=== PATIENT | male | born 1945 | race Caucasian/White ===

== ENCOUNTER 2018-01-15 23:51 | Emergency (ER) | payer MEDICARE, BC ==
--- NOTE | 2018-01-16 00:36 | ED ---
Abdominal Pain HPI - General Source: patient, RN notes reviewed Mode of arrival: ambulatory Limitations: no limitations <Kelsey Oneill - Last Filed: 01/16/18 02:59> <Reymundo Brown - Last Filed: 01/16/18 04:57> - General Chief Complaint: Abdominal Pain Stated Complaint: Back pain, consipation Time Seen by Provider: 01/16/18 00:22 - History of Present Illness Initial Comments: This is a 72-year-old male who presents to the emergency department with chief complaint of back pain and constipation. Patient states that 9 days ago he woke up with left-sided low back pain. Patient describes the pain as constant and sore. He states also since that time he has not had a bowel movement but he does continue to pass gas. He denies abdominal pain, nausea or vomiting. Denies fevers or chills. He denies any specific injury, trauma or recent falls. He denies dysuria, hematuria, increased urinary frequency or bloody stools. (Kelsey Oneill) - Related Data Previous Rx's Medication Instructions Recorded Polyethylene Glycol 3350 [Miralax] 17 gm PO DAILY #255 gm 01/16/18 Allergies Allergy/AdvReac Type Severity Reaction Status Date / Time No Known Allergies Allergy Verified 01/16/18 00:00 Review of Systems ROS Other: All systems not noted in ROS Statement are negative. <Kelsey Oneill - Last Filed: 01/16/18 02:59> ROS Other: All systems not noted in ROS Statement are negative. <Reymundo Brown - Last Filed: 01/16/18 04:57> ROS Statement: Those systems with pertinent positive or pertinent negative responses have been documented in the HPI. Past Medical History Past Medical History: Hypertension History of Any Multi-Drug Resistant Organisms: None Reported Past Surgical History: Pacemaker Additional Past Surgical History / Comment(s): valve replacement. Past Psychological History: No Psychological Hx Reported Smoking Status: Current every day smoker Past Alcohol Use History: None Reported Past Drug Use History: None Reported <Kelsey Oneill - Last Filed: 01/16/18 02:59> General Exam Limitations: no limitations Neck exam: Present: normal inspection, full ROM exam: Present: scrotal swelling (incarcerated left inguinal hernia) Back exam: Present: full ROM, paraspinal tenderness (left thoracic ), other ( thoracic kyphosis ). Absent: vertebral tenderness <Kelsey Oneill - Last Filed: 01/16/18 02:59> <Reymundo Brown - Last Filed: 01/16/18 04:57> - General Exam Comments Initial Comments: General: Awake and alert, well-developed; in no apparent distress. Patient appears chronically ill. Resting comfortably on ED stretcher. HEENT: Head atraumatic, normocephalic. Pupils are equal, round and reactive to light. Extraocular movements intact. Oropharynx moist without erythema or exudate. Neck: Supple. Normal ROM. Cardiovascular: Regular rate and rhythm. No murmurs, rubs or gallops. Chest symmetrical. Respiratory: Lungs clear to auscultation bilaterally. No wheezes, rales or rhonchi. Normal respiratory effort with no use of accessory muscles. Abdomen: Soft, non-tender, non-distended. No rigidity, rebound or guarding. Normal bowel sounds in all 4 quadrants. Musculoskeletal: Normal ROM, no tenderness bilateral upper and lower extremities. Skin: [place], warm and dry without rashes or lesions. Neurological: Alert and oriented x3. CN II-XII grossly intact. Speech is fluent and answers are appropriate. No focal neuro deficits. Psychiatric: Normal mood and affect. No overt signs of depression or anxiety noted. (Kelsey Oneill) Vital Signs 01/15/18 01/16/18 01/16/18 23:56 03:00 04:03 Temperature 97.4 F L 98.0 F Pulse Rate 71 70 83 Respiratory 24 18 16 Rate Blood Pressure 162/86 188/98 157/93 O2 Sat by Pulse 100 94 L 98 Oximetry Medical Decision Making - Lab Data Result diagrams: 01/16/18 00:58 01/16/18 00:58 - Radiology Data Radiology results: report reviewed, image reviewed <Kelsey Oneill - Last Filed: 01/16/18 02:59> - Lab Data Result diagrams: 01/16/18 00:58 01/16/18 00:58 <Reymundo Brown - Last Filed: 01/16/18 04:57> - Medical Decision Making This is a 72-year-old male who presents to the emergency department with chief complaint of back pain and constipation. Patient complains of left-sided back pain that began approximately 10 days ago. He denies any falls, injuries or trauma. He does describe the pain as sore and states that his has MS and helps move her periodically. On physical examination, there is left thoracic back tenderness on palpation. No vertebral bony point tenderness. CBC and CMP were unremarkable. X-ray KUB revealed a non-acute abdomen, however on review of the x-ray there is a large amount of stool within the colon. Patient given a milk and molasses enema. This case was discussed with attending physician, Dr. Brown who recommended computed tomography scan of the abdomen and pelvis. Computed tomography scan revealed evidence of an incarcerated left inguinal hernia, 5 cm abdominal aorta and constipation. These findings were discussed with attending physician, Dr. Bronw who then evaluated the patient. There does appear to be bowel within the scrotum. This is incarcerated and is unable to be reduced back into place. This is the likely reason for patient's constipation. Patient will be provided with follow-up to Dr. Barajas, surgery. Recommended admission to the hospital for surgical evaluation, however patient refuses. Return parameters were discussed with patient including decreased bowel movements, decreased flatulence or increase in pain. Patient was in agreement with these return parameters. He will be provided with prescription for MiraLAX to be taken daily. Patient will also be given contact information for vascular surgeon, Dr. Salazar, to address the abdominal aortic aneurysm. Patient is in agreement with this plan. Vital signs are stable and he is in no acute distress. He will be discharged home at this time. All questions were answered. (Kelsey Oneill) 72-year-old man with constipation and incarcerated left inguinal hernia. No signs of induration, normal lactic acid. Patient states he has had scrotal swelling and constipation for some time. CT does show a 5 cm abdominal aortic aneurysm with thrombus. No signs of lower extremity ischemia. Given the incarcerated hernia and aortic aneurysm, it is recommended that the patient stay in the hospital for evaluation both by general surgery and vascular surgery. He declines this. He states he would rather be discharged we will follow up as an outpatient. (Reymundo Brown) - Lab Data Lab Results 01/16/18 01/16/18 01/16/18 Range/Units 00:58 00:58 00:58 WBC 7.6 (3.8-10.6) k/uL RBC 4.50 (4.30-5.90) m/uL Hgb 14.7 (13.0-17.5) gm/dL Hct 43.6 (39.0-53.0) % MCV 97.0 (80.0-100.0) fL MCH 32.8 (25.0-35.0) pg MCHC 33.8 (31.0-37.0) g/dL RDW 14.0 (11.5-15.5) % Plt Count 157 (150-450) k/uL Neutrophils % 70 % Lymphocytes % 21 % Monocytes % 6 % Eosinophils % 2 % Basophils % 0 % Neutrophils # 5.3 (1.3-7.7) k/uL Lymphocytes # 1.6 (1.0-4.8) k/uL Monocytes # 0.4 (0-1.0) k/uL Eosinophils # 0.2 (0-0.7) k/uL Basophils # 0.0 (0-0.2) k/uL Sodium 137 (137-145) mmol/L Potassium 4.5 (3.5-5.1) mmol/L Chloride 101 (98-107) mmol/L Carbon Dioxide 27 (22-30) mmol/L Anion Gap 9 mmol/L BUN 16 (9-20) mg/dL Creatinine 0.90 (0.66-1.25) mg/dL Est GFR (CKD-EPI)AfAm >90 (>60 ml/min/1.73 sqM) Est GFR (CKD-EPI)NonAf 84 (>60 ml/min/1.73 sqM) Glucose 99 (74-99) mg/dL Plasma Lactic Acid Kavon 1.2 (0.7-2.0) mmol/L Calcium 8.8 (8.4-10.2) mg/dL Total Bilirubin 0.9 (0.2-1.3) mg/dL AST 18 (17-59) U/L ALT 28 (21-72) U/L Alkaline Phosphatase 76 (38-126) U/L Total Protein 6.3 (6.3-8.2) g/dL Albumin 3.5 (3.5-5.0) g/dL Amylase 104 (30-110) U/L Lipase 239 (23-300) U/L - Radiology Data X-ray KUB findings: The bowel gas pattern is normal. There is no sign of intestinal obstruction or pneumoperitoneum. Fecal pattern is normal. There are fibrotic changes in the lower lobes with interstitial reticular infiltrates. There is a large hiatal hernia. There are no pathologic calcifications over the kidneys. Impression: Nonacute abdomen. CT abdomen and pelvis with contrast impression: 5 cm aneurysm of the abdominal aorta. No evidence of leakage. Large hiatal hernia. Pulmonary interstitial fibrosis. Constipation. Atherosclerotic vascular disease. Enlarged prostate. Incarcerated left inguinal hernia probably containing small bowel. I do not see evidence for a bowel obstruction however. (Kelsey Oneill) Disposition Is patient prescribed a controlled substance at d/c from ED?: No Time of Disposition: 03:41 <Kelsey Oneill - Last Filed: 01/16/18 02:59> <Reymundo Brown - Last Filed: 01/16/18 04:57> Clinical Impression: Abdominal aortic aneurysm, Constipation, Incarcerated inguinal hernia Disposition: HOME SELF-CARE Condition: Good Instructions: Constipation (ED), Abdominal Aortic Aneurysm (DC), Inguinal Hernia (ED) Additional Instructions: Please follow-up with Dr. Barajas, general surgeon, within 1-2 days to address the incarcerated inguinal hernia. Please follow-up with Dr. Salazar, vascular surgeon, within 1-2 days to address abdominal aortic aneurysm. Please take medications as prescribed. Please follow up with primary care provider within 1- 2 days. Return to emergency department if symptoms should worsen or any concerns arise. Please return to the emergency department if you have decreased bowel movements, decreased passing of gas or increase in abdominal or scrotal pain. Prescriptions: Polyethylene Glycol 3350 [Miralax] 17 gm PO DAILY #255 gm Referrals: Tito Almeida DO [Primary Care Provider] - 1-2 days Marcos Barajas MD [Medical Doctor] - 1-2 days aRnjit Salazar MD [STAFF PHYSICIAN] - 1-2 days
[2018-01-16] MEDS ORDERED: ACETAMINOPHEN TAB 325 MG TAB PO STA (00:45)
[2018-01-16 01:13] LABS: Basophils % (A) 0 %; Eosinophils # (A) 0.2 k/uL (0-0.7); Eosinophils % (A) 2 %; HCT 43.6 % (39.0-53.0); HGB 14.7 gm/dL (13.0-17.5); Lymphocytes # (A) 1.6 k/uL (1.0-4.8); Lymphocytes % (A) 21 %; MCH 32.8 pg (25.0-35.0); MCHC 33.8 g/dL (31.0-37.0); Mean Platelet Volume 7.7; Monocytes # (A) 0.4 k/uL (0-1.0); Monocytes % (A) 6 %; Neutrophils # (A) 5.3 k/uL (1.3-7.7); Neutrophils % (A) 70 %; Platelet Count 157 k/uL (150-450); WBC 7.6 k/uL (3.8-10.6)
[2018-01-16 01:19] LABS: ALT 28 U/L (21-72); AST 18 U/L (17-59); Albumin 3.5 g/dL (3.5-5.0); Alkaline Phosphatase 76 U/L (38-126); Amylase 104 U/L (30-110); Anion Gap 9 mmol/L; Blood Urea Nitrogen 16 mg/dL (9-20); Calcium 8.8 mg/dL (8.4-10.2); Carbon Dioxide 27 mmol/L (22-30); Chloride 101 mmol/L (98-107); Glucose 99 mg/dL (74-99); Lipase 239 U/L (23-300); Potassium 4.5 mmol/L (3.5-5.1); Sodium 137 mmol/L (137-145); Total Bilirubin 0.9 mg/dL (0.2-1.3); Total Protein 6.3 g/dL (6.3-8.2)
--- NOTE | 2018-01-16 01:31 | XR ---
EXAMINATION TYPE: XR KUB DATE OF EXAM: 01/16/2018 COMPARISON: NONE HISTORY: Left flank pain TECHNIQUE: 2 views upright FINDINGS: The bowel gas pattern is normal. There is no sign of intestinal obstruction or pneumoperito neum. Fecal pattern is normal. There are fibrotic changes in the lower lobes with interstitial reticu lar infiltrates. There is large hiatal hernia. There are no pathologic calcifications over the kidney s. IMPRESSION: Nonacute abdomen.
[2018-01-16] MEDS ORDERED: RX INFO: IV CONTRAST WAS GIVEN 1 EACH MISC MISCELLANE PRN (02:01)
--- NOTE | 2018-01-16 02:53 | CT ---
EXAMINATION TYPE: CT abdomen pelvis w con DATE OF EXAM: 01/16/2018 COMPARISON: NONE HISTORY: ABDOMINAL PAIN. LEFT FLANK CT DLP: 408.3 mGycm Automated exposure control for dose reduction was used. TECHNIQUE: Helical acquisition of images was performed from the lung bases through the pelvis. CONTRAST: Performed without Oral Contrast and with IV Contrast, patient injected with 100 mL of Isovue 300. FINDINGS: There is subpleural interstitial density at the lung bases consistent with pulmonary fibrosis. There is a large hiatal hernia. There is no pericardial effusion. Liver shows no focal defect. Spleen and pancreas appear normal. Gallbladder appears normal. Bile duct s are not dilated. There is no adrenal mass. Kidneys show satisfactory contrast opacification. There is no hydronephrosi s. There is 5.3 cm aneurysm of the lower abdominal aorta with thrombus. Thrombus measures up to 1.5 c m. There is patency of the iliac arteries. There is retained fecal material in the right colon. There prostate is enlarged and measures 5 cm. Bladder distends otherwise smoothly. I see no sign of a maryjo l obstruction. There is no retroperitoneal adenopathy. There is no ascites. There is mild compression deformity of L3 and L4 vertebral bodies. There is incarcerated left inguinal hernia that appears to contain only small bowel. I do not see dil ated small bowel. Appendix appears normal. IMPRESSION: 5 CM ANEURYSM OF THE ABDOMINAL AORTA. NO EVIDENCE OF LEAKAGE. LARGE HIATAL HERNIA. PULMONARY INTERSTI TIAL FIBROSIS. CONSTIPATION. ATHEROSCLEROTIC VASCULAR DISEASE. ENLARGED PROSTATE. INCARCERATED LEFT INGUINAL HERNIA PROBABLY CONTAINING SMALL BOWEL. I DO NOT SEE EVIDENCE FOR A BOWEL OBSTRUCTION HOWEVER.
[2018-01-16 04:10] VITALS: BP 157/93; PULSE 83; RESP 16; TEMP 98
== END 2018-01-16 04:11 | disposition home or self-care (01) ==
LOC: EC 23:51
DX: I71.4 Abdominal aortic aneurysm, without rupture (principal); K40.30 Unilateral inguinal hernia, with obstruction, without gangrene, not specified as recurrent; K59.00 Constipation, unspecified; F17.200 Nicotine dependence, unspecified, uncomplicated; Z53.29 Procedure and treatment not carried out because of patient's decision for other reasons; Z95.0 Presence of cardiac pacemaker; Z95.2 Presence of prosthetic heart valve
CPT/HCPCS: 36415; 80053; 82150; 83605; 83690; 85025; 74018; 74177; 99284; Q9967

== ENCOUNTER 2018-02-09 10:57 | Observation (INO) | payer MEDICARE, BC ==
[2018-02-03 17:16] VITALS: BMI 22.1
[~2018-02-09 10:57] MED LIST: DEXAMETHASONE SOD PHOSPHATE 10 MG/ML 1 ML VIAL IV ONE; HEPARIN SODIUM,PORCINE 5,000 UNIT/ML 1 ML VIAL SQ ONE; LIDOCAINE 1% 20 ML VIAL (10MG/ML) FOR IV START INTRADERMA PRN; MORPHINE SULFATE 2 MG/ML SYRINGE IV PRN; ONDANSETRON 4 MG/2 ML VIAL IVP ONE; SCOPOLAMINE 1.5MG/72HR PATCH TRANSDERM ONE; ceFAZolin IN SWFI 2 GM/20 ML SYRINGE IVP ONE
[2018-02-09 12:35] LABS: Glucose,Whole Blood 92 mg/dL (75-99)
[2018-02-09] MEDS: LACTATED RINGERS 1,000 ML IV SCH (12:45)
--- NOTE | 2018-02-09 14:07 | P.GSHP ---
History of Present Illness H&P Date: 02/09/18 Chief Complaint: Left inguinal hernia This a 72-year-old male referred from Dr. Tito Almeida. Patient rents today for laparoscopic robotic-assisted repair of left inguinal hernia. Past Medical History Past Medical History: GERD/Reflux, Hearing Disorder / Deafness, Hypertension, Musculoskeletal Disorder, Skin Disorder Additional Past Medical History / Comment(s): AORTIC VALVE REPLACED, PACEMAKER. NO LONGER ON HTN RX SINCE 2016. PSORIASIS. C/O BACK PAIN X2 WEEKS; HAD CORTISONE INJ. History of Any Multi-Drug Resistant Organisms: None Reported Past Surgical History: Cardiac Valve Replacement, Pacemaker Additional Past Surgical History / Comment(s): AORTIC Valve Replacement. Past Anesthesia/Blood Transfusion Reactions: No Reported Reaction Type of Cardiac Device: Permanent Pacemaker Device Placement Date:: 2008 Smoking Status: Current every day smoker - Past Family History Mother Family Medical History: No Reported History Medications and Allergies Home Medications Medication Instructions Recorded Confirmed Type Ibuprofen [Advil] 200 mg PO Q6HR PRN 02/03/18 02/09/18 History Rivaroxaban [Xarelto] 20 mg PO PC-SUPPER 02/03/18 02/09/18 History Allergies Allergy/AdvReac Type Severity Reaction Status Date / Time No Known Allergies Allergy Verified 02/03/18 16:47 Surgical - Exam Vital Signs Temp Pulse Resp BP Pulse Ox 97.2 F L 70 16 132/85 99 02/09/18 12:08 02/09/18 12:08 02/09/18 12:08 02/09/18 12:08 02/09/18 12:08 - General well developed, no distress - Eyes PERRL - ENT normal pinna - Neck no masses - Respiratory normal expansion - Cardiovascular Rhythm: regular - Abdomen Abdomen: soft, non tender Hernia: inguinal (Left inguinal hernia) Assessment and Plan Assessment: Left inguinal hernia. We'll perform laparoscopic robotic system repair.
[2018-02-09] MEDS ORDERED: NEOSTIGMINE 1 MG/ML 10 ML VIAL ONE (14:35)
[2018-02-09] MEDS ORDERED: MIDAZOLAM 2 MG/2 ML VIAL ONE (14:35)
[2018-02-09] MEDS ORDERED: GLYCOPYRROLATE 0.2 MG/ML 2 ML VIAL ONE (14:35)
[2018-02-09] MEDS ORDERED: ROCURONIUM BROMIDE 10 MG/ML 10 ML VIAL IV ONE (14:35)
[2018-02-09] MEDS ORDERED: LIDOCAINE 1% INJ 10MG/ML (20 ML MDV) ONE (14:35)
[2018-02-09] MEDS ORDERED: KETOROLAC 30 MG/ML 1 ML VIAL ONE (14:35)
[2018-02-09] MEDS ORDERED: PHENYLEPHRINE-0.9% NACL SYG 1 MG/10 ML SYRINGE ONE (14:35)
[2018-02-09] MEDS ORDERED: PROPOFOL 10 MG/ML 20 ML VIAL IV ONE (14:35)
[2018-02-09] MEDS ORDERED: SUCCINYLCHOLINE CHLORIDE 100 MG/5 ML SYR IV ONE (14:35)
[2018-02-09] MEDS ORDERED: fentaNYL (PF) 50 MCG/ML 2 ML AMP ONE (14:35)
[2018-02-09] MEDS ORDERED: BUPIVACAINE (PF) 0.5% 30 ML VIAL SQ ONE (14:40)
--- NOTE | 2018-02-09 15:42 | P.OP ---
Date of Procedure: 02/09/18 Preoperative Diagnosis: Left inguinal hernia Postoperative Diagnosis: Left inguinal hernia Procedure(s) Performed: Laparoscopic robotic repair of left inguinal hernia Excision of left cord lipoma Anesthesia: WAQAR Surgeon: Zac Aquino Estimated Blood Loss (ml): 5 Pathology: other (Cord lipoma) Condition: stable Disposition: PACU Description of Procedure: The patient's placed on the operating table in the supine position. The patient received general anesthesia. The patient's abdomen was prepped and draped in usual sterile fashion. The skin was anesthetized 1% local Xylocaine at the incision sites. Using an 11 blade a skin incision was made at the umbilicus. The fascia was grasped with a Trudy and then the peritoneal cavity was entered with the Veress needle. Position of the Veress needle was confirmed with a positive drop test. After adequate insufflation a 5 mm trocar was placed into the peritoneal cavity. The Laparoscope was placed the peritoneal cavity. And a robotic 8 mm trocar was placed in the right lateral position and then another 8 mm robotic trochars placed in the left lateral position. The original 5 mm trocar was exchanged for a 12 mm trocar. The patient was placed in reverse Trendelenburg and then the patient was docked to the robot. Next the peritoneum over top of the hernia was incised and then using blunt and sharp dissection and electrocautery the hernia sac was dissected free from the floor of the inguinal canal. The hernia sac was completely reduced into the peritoneal cavity. The cord lipoma was dissected free from the cord. And then using the Pro welfare specialist mesh the hernia was repaired. The peritoneum was then sutured with 20V lock suture. The patient was then undocked the robot. The needle was withdrawn from the peritoneal cavity. The cord lipoma was achieved. The umbilical trocar site was closed with 0 Ethibond suture. The skin was closed interrupted 3-0 Monocryl suture. Dermabond dressing was applied. Patient was sent to recovery in stable condition.
[2018-02-09] MEDS ORDERED: LACTATED RINGERS 1,000 ML IV ONE (20:00)
[2018-02-09] MEDS ORDERED: HYDROcodone/APAP 7.5-325MG 1 EACH TAB PO PRN (21:09)
[2018-02-09] MEDS ORDERED: LACTATED RINGERS 1,000 ML IV SCH (21:15)
[2018-02-09] MEDS: DOCUSATE 100 MG CAP PO SCH (23:01)
[2018-02-10 07:56] VITALS: RESP 16
[2018-02-10] MEDS: DOCUSATE 100 MG CAP PO SCH (09:12)
--- NOTE | 2018-02-10 11:42 | P.DS ---
Providers Date of admission: 02/09/18 21:13 Expected date of discharge: 02/10/18 Attending physician: Zac Ott Primary care physician: Tito [facility] Course: 72-year-old presented to undergo an elective robotic laparoscopic assisted repair of left inguinal hernia. Patient underwent the procedure on February 09. No postop events. Patient was up ambulatory on the unit pain medication effective for pain control surgical dressing site dry urinating after Ruggiero was removed without difficulty patient was anxious to be discharged Impression discharge diagnosis robotic-assisted laparoscopic repair of inguinal hernia done on February 09 Hypertension essential History of valvular heart disease valvular replacement Current every day smoker History of Pacemaker Present on admission left inguinal hernia The above impression and plan of care have been discussed and directed by signing physician. Keyona Shoemaker nurse practitioner acting as scribe for signing physician. Plan - Discharge Summary New Discharge Prescriptions: New Docusate [Colace] 100 mg PO BID #20 capsule HYDROcodone/APAP 7.5-325MG [Hana 7.5-325] 1 tab PO Q4H PRN 3 Days #18 tab PRN Reason: Pain No Action Ibuprofen [Advil] 200 mg PO Q6HR PRN PRN Reason: Pain Rivaroxaban [Xarelto] 20 mg PO PC-SUPPER Discharge Medication List Ibuprofen [Advil] 200 mg PO Q6HR PRN 02/03/18 [History] Rivaroxaban [Xarelto] 20 mg PO PC-SUPPER 02/03/18 [History] Docusate [Colace] 100 mg PO BID #20 capsule 02/09/18 [Rx] HYDROcodone/APAP 7.5-325MG [Hana 7.5-325] 1 tab PO Q4H PRN 3 Days #18 tab 02/09 [Rx] Follow up Appointment(s)/Referral(s): Zac Ott MD [STAFF PHYSICIAN] - 02/17/18 3:00 pm Patient Instructions/Handouts: *Surgery [facility] - (Anesthesia) Discharge Instructions Outpatient Surgery, Laparoscopic Herniorrhaphy (DC), Inguinal Hernia Repair (DC) Activity/Diet/Wound Care/Special Instructions: No tub bath for six weeks. Shower daily. No lifting over 10 pounds for the next 6 weeks. Do not remove surgical dressing until seen in the follow-up visit with dr ott May use ice packs to surgical site. No driving while taking narcotic for pain. Discharge Disposition: HOME SELF-CARE
[2018-02-10 12:13] VITALS: BP 147/93; PULSE 83; TEMP 98.1
[2018-02-10] MEDS ORDERED: RIVAROXABAN 20 MG TAB PO SCH (18:30)
== END 2018-02-10 13:25 | disposition home or self-care (01) ==
LOC: OR 10:57 → 3OBS 16:08 → OR 21:33
PROVIDERS: ADMIT Surgery; ATTEND Surgery
DX: K40.90 Unilateral inguinal hernia, without obstruction or gangrene, not specified as recurrent (principal); D17.6 Benign lipomatous neoplasm of spermatic cord; I10 Essential (primary) hypertension; K21.9 Gastro-esophageal reflux disease without esophagitis; H91.90 Unspecified hearing loss, unspecified ear; L40.9 Psoriasis, unspecified; F17.200 Nicotine dependence, unspecified, uncomplicated; Z79.01 Long term (current) use of anticoagulants; Z95.2 Presence of prosthetic heart valve; Z95.0 Presence of cardiac pacemaker
CPT/HCPCS: 49650; S2900; 88304

== ENCOUNTER → 2018-05-31 | Outpatient (CLI) | payer MEDICARE, BC ==
--- NOTE | 2018-05-31 15:28 | XR ---
EXAMINATION TYPE: XR chest 2V DATE OF EXAM: 05/31/2018 COMPARISON: Prior chest x-ray 06/01/[address] 01/16/2018 HISTORY: Unexplained weight loss, nicotine dependence TECHNIQUE: Frontal and lateral views of the chest are obtained. FINDINGS: Patient is rotated. Hyperinflation is again noted. Retrocardiac density with central lucen cy again noted compatible with hiatal hernia. Interstitium is increased. Pacemaker is stable with yariel ds in the right atrium and ventricle. Heart is small. Aorta is dense. There is increased AP diameter chest. Increased retrosternal airspace noted. Patient shows cardiac valve replacement. IMPRESSION: No acute cardiopulmonary process. Emphysema.
--- NOTE | 2018-05-31 17:51 | NM ---
EXAMINATION TYPE: NM bone scan whole body DATE OF EXAM: 05/31/2018 COMPARISON: Chest x-ray same date HISTORY: Myalgia, osteoarthritis Delayed whole-body scanning was performed following the injection of 26.2 mCi Tc 99m MDP. Images acq uired 3 hours post injection. FINDINGS: There is a bandlike focus of increased radio from a suitable uptake present at the approximate T10 ve rtebral body compatible with osteoporotic compression fracture. Soft tissue uptake is normal. Some up take present along the tibia on the right greater than left possibly due to periostitis. There is a s trish curvature. IMPRESSION: Probable osteoporotic compression fracture T10. Suspect periosteal reaction along the tibias right greater than left, suggest plain film correlation.
== END | disposition home or self-care (01) ==
LOC: RADNMMAIN 10:11
PROVIDERS: ATTEND Family Medicine
DX: J43.9 Emphysema, unspecified (principal); F17.210 Nicotine dependence, cigarettes, uncomplicated; M19.90 Unspecified osteoarthritis, unspecified site; M79.1 Myalgia
CPT/HCPCS: 71046; 78306; A9503

== ENCOUNTER → 2018-12-06 | Outpatient (CLI) | payer MEDICARE, BC ==
[2018-12-06 15:09] LABS: Blood Urea Nitrogen 14 mg/dL (9-20)
--- NOTE | 2018-12-07 04:05 | CT ---
EXAMINATION TYPE: CT angio abdomen DATE OF EXAM: 12/06/2018 COMPARISON: 01/16/2018 HISTORY: 73-year-old male Abdominal aortic aneurysm, without rupture. CT DLP: 194.9 mGycm, Automated Exposure Control for Dose Reduction was Utilized. Technique: CT scan of the abdomen is performed with IV Contrast, patient injected with 100ml mL of Is ovue 370. Coronal sagittal MIP reconstructions performed. 3-D reconstructions generated on a [employer] independent workstation. FINDINGS: Increased AP chest dimension of the thorax compatible with underlying emphysema. Median sternotomy wi res are present. Heart normal size without pericardial effusion. Large hiatal hernia is redemonstrate d. One of the pacer leads loops down low into the hepatic IVC, unchanged. Arterial phase imaging of the liver shows peripheral vascular blush segment 3 left liver lobe probabl y some vascular shunting. Layering sludge or gravel within the nondistended gallbladder. Adrenal glands are not well seen. Kidneys, spleen, and pancreas show no gross abnormality. No dilated small bowel, free fluid, or free air. Moderate stool burden without pericolonic inflammatory change. Extensive clustering of bowel loops li mits detailed evaluation. No definite mesenteric or retroperitoneal lymphadenopathy. Redemonstrated fusiform infrarenal abdominal aortic aneurysm extending 9.4 cm down to the bifurcation . Moderate atherosclerotic calcifications within the common iliac arteries. The patient's abdominal aortic aneurysm continues to show circumferential mural-based plaque/thrombus measuring 5.9 x 5.4 cm previously, this measured 5.5 x 4.9 cm. No surrounding hematoma or abnormal d raping along the spine. No intramural extension of contrast is identified. Bones: Superior endplate deformities of L3 and L4 were present previously. IMPRESSION: 1. 9.4 cm long infrarenal AAA extending to the aortic bifurcation. The aneurysm has enlarged from 01/04 now measuring 5.9 x 5.4 cm (versus 5.5 x 4.9 cm, previously). Recommend vascular surgery refer ral. 2. COPD and large hiatal hernia. 3. Incidentally, one of the pacer leads loops low into the hepatic IVC, similar to prior. Questionabl e clinical significance. 4. Layering sludge or gravel within the gallbladder.
== END | disposition home or self-care (01) ==
LOC: RADCTMAIN 14:31
PROVIDERS: ATTEND Nurse Practitioner Adult Health
DX: I71.4 Abdominal aortic aneurysm, without rupture (principal)
CPT/HCPCS: 82565; 84520; 74175; 36415; Q9967

== ENCOUNTER 2018-12-28 09:56 | Inpatient (IN) | payer MEDICARE, BC ==
[2018-12-26 08:50] VITALS: BMI 20.7
[~2018-12-28 09:56] MED LIST changes: +ALPRAZolam 0.25 MG TAB PO PRN; -DEXAMETHASONE SOD PHOSPHATE 10 MG/ML 1 ML VIAL IV ONE; -HEPARIN SODIUM,PORCINE 5,000 UNIT/ML 1 ML VIAL SQ ONE; +HYDROmorphone 0.5 MG/0.5 ML SYRINGE IVP PRN; -MORPHINE SULFATE 2 MG/ML SYRINGE IV PRN; -SCOPOLAMINE 1.5MG/72HR PATCH TRANSDERM ONE; +SODIUM CHLORIDE 0.9% 1,000 ML in EMPTY BAG 1 BAG IV ONE; -ceFAZolin IN SWFI 2 GM/20 ML SYRINGE IVP ONE
[2018-12-28] MEDS ORDERED: MIDAZOLAM 2 MG/2 ML VIAL IV ONE (10:45)
[2018-12-28] MEDS ORDERED: HEPARIN SODIUM,PORCINE 10,000 UNIT/ML 1 ML VIAL ONE (11:03)
[2018-12-28] MEDS ORDERED: LIDOCAINE 1% INJ 10MG/ML (20 ML MDV) ONE (11:03)
[2018-12-28] MEDS ORDERED: NEOSTIGMINE 1 MG/ML 10 ML VIAL ONE (11:03)
[2018-12-28] MEDS ORDERED: PHENYLEPHRINE-0.9% NACL SYG 1 MG/10 ML SYRINGE ONE (11:03)
[2018-12-28] MEDS ORDERED: MIDAZOLAM 2 MG/2 ML VIAL ONE (11:03)
[2018-12-28] MEDS ORDERED: GLYCOPYRROLATE 0.2 MG/ML 2 ML VIAL ONE (11:03)
[2018-12-28] MEDS ORDERED: fentaNYL (PF) 50 MCG/ML 2 ML AMP ONE (11:03)
[2018-12-28] MEDS ORDERED: ceFAZolin 1,000 MG VIAL ONE (11:03)
[2018-12-28] MEDS ORDERED: PROTAMINE SULFATE 10 MG/ML 5 ML VIAL IV ONE (11:03)
[2018-12-28] MEDS ORDERED: ROCURONIUM BROMIDE 10 MG/ML 10 ML VIAL IV ONE (11:03)
[2018-12-28] MEDS ORDERED: PROPOFOL 10 MG/ML 20 ML VIAL IV ONE (11:03)
[2018-12-28] MEDS ORDERED: LACTATED RINGERS 1,000 ML IV ONE ×3 (11:07→13:59)
[2018-12-28 11:19] LABS: Anion Gap 6 mmol/L; Blood Urea Nitrogen 15 mg/dL (9-20); Calcium 8.8 mg/dL (8.4-10.2); Carbon Dioxide 25 mmol/L (22-30); Chloride 104 mmol/L (98-107); Glucose 81 mg/dL (74-99); Potassium 4.4 mmol/L (3.5-5.1); Sodium 135 mmol/L (137-145)
[2018-12-28 11:22] LABS: Basophils # (A) 0.1 k/uL (0-0.2); Basophils % (A) 1 %; Eosinophils # (A) 0.2 k/uL (0-0.7); Eosinophils % (A) 3 %; HCT 43.6 % (39.0-53.0); HGB 14.5 gm/dL (13.0-17.5); Lymphocytes # (A) 1.4 k/uL (1.0-4.8); Lymphocytes % (A) 22 %; MCH 33.4 pg (25.0-35.0); MCHC 33.2 g/dL (31.0-37.0); MCV 100.7 fL (80.0-100.0); Macrocytosis Slight; Mean Platelet Volume 7.1; Monocytes # (A) 0.2 k/uL (0-1.0); Monocytes % (A) 4 %; Neutrophils # (A) 4.3 k/uL (1.3-7.7); Neutrophils % (A) 69 %; Platelet Count 169 k/uL (150-450); RBC 4.33 m/uL (4.30-5.90); RDW 14.1 % (11.5-15.5); WBC 6.2 k/uL (3.8-10.6)
[2018-12-28] MEDS ORDERED: IOPAMIDOL-250 100ML BTL INTRAARTER ONE ×2 (13:07→13:08)
[2018-12-28] MEDS ORDERED: IOPAMIDOL-250 50ML BTL INTRAARTER ONE (13:08)
[2018-12-28] MEDS ORDERED: SODIUM CHLORIDE 0.9% 1,000 ML IV SCH (13:30)
[2018-12-28] MEDS: LACTATED RINGERS 1,000 ML IV SCH ×2 (13:58→14:44)
[2018-12-28 14:02] LABS: Anion Gap 5 mmol/L; Blood Urea Nitrogen 13 mg/dL (9-20); Calcium 7.9 mg/dL (8.4-10.2); Carbon Dioxide 20 mmol/L (22-30); Chloride 109 mmol/L (98-107); Glucose 95 mg/dL (74-99); Potassium 4.3 mmol/L (3.5-5.1); Sodium 134 mmol/L (137-145)
[2018-12-28 14:03] LABS: Basophils % (A) 0 %; Eosinophils # (A) 0.2 k/uL (0-0.7); Eosinophils % (A) 2 %; HCT 34.4 % (39.0-53.0); Lymphocytes # (A) 1.4 k/uL (1.0-4.8); Lymphocytes % (A) 15 %; MCH 33.3 pg (25.0-35.0); MCHC 33.4 g/dL (31.0-37.0); MCV 99.7 fL (80.0-100.0); Macrocytosis Slight; Mean Platelet Volume 7.7; Monocytes # (A) 0.2 k/uL (0-1.0); Monocytes % (A) 2 %; Neutrophils % (A) 79 %; Platelet Count 135 k/uL (150-450); RBC 3.45 m/uL (4.30-5.90); RDW 14.8 % (11.5-15.5); WBC 8.9 k/uL (3.8-10.6)
[2018-12-28 14:04] LABS: HGB 11.5 gm/dL (13.0-17.5)
[2018-12-28 14:58] LABS: Glucose,Whole Blood 90 mg/dL (75-99)
[2018-12-28] MEDS: hydrALAZINE HCL 20 MG/ML 1 ML VIAL IVP PRN ×2 (15:40→21:35)
[2018-12-28] MEDS ORDERED: HYDROmorphone 0.5 MG/0.5 ML SYRINGE IVP PRN ×2 (16:45→18:51)
[2018-12-28] MEDS ORDERED: HYDROmorphone 1 MG/ML 1 ML SYRINGE IVP PRN (16:45)
--- NOTE | 2018-12-28 17:50 | AN ---
ANGIOGRAPHY REPORT DATE OF SERVICE: December 28, 2018 PERFORMING PHYSICIAN: 1. Huey Anaya M.D. 2. Donn Gutiérrez D.O. PROCEDURE PERFORMED: Successful endovascular repair of infrarenal abdominal aortic aneurysm using the 20 mm ovation IX device. COMPLICATION: None. LEVEL OF SEDATION: The procedure was performed under general anesthesia with FINE HAIRER in the room. INDICATIONS FOR PROCEDURE: Infrarenal abdominal aortic aneurysm. PROCEDURE DESCRIPTION: After obtaining an informed consent, the patient was brought to the cardiac tutorial laboratory supervisor. The patient was placed under general anesthesia. Both groins were prepped and draped in the usual sterile fashion. Subsequently, we accessed both femoral arteries using an 18-gauge Cook needle under ultrasound guidance. Subsequently, we placed two 6-Portuguese sheaths in both femoral arteries over a 035 Glidewire. Then we placed 2 Perclose on each side at 10 and 2 o'clock over the 0.035 wire. We did that as a pre close. After that I did, which shows to go on the left side as the ipsilateral side and the right side as the contralateral side. Subsequently we did angiogram using 6-Portuguese pigtail catheter to measure the vessel length and characterize the anatomy. That was performed using a pigtail catheter. Subsequently, we did load 20 mm ovation IX aortic candelaria delivery system over a stiff 035 Amplatz wire which was inserted on the left side and the aortic candelaria was advanced until the implant radiopaque marker was about 1 cm proximal to the intended landing site. The aortic candelaria was oriented to the desired position for appropriate access to the contralateral aortic candelaria limb. After that, we retracted the delivery system outer sheath. Subsequently we verified the aortic candelaria radial back marker and long delivery system radial back marker to be in the correct position. Then we deployed the 1st segment of the proximal stent by turning the first stent release knob, quarter turn counter-clockwise and it was steadily pulled the knob out. After that, we precisely repositioned the implant radiopaque marker at final proximal landing site. We used contrast injection to confirm the implant position relative to the renal arteries. Subsequently, we retracted the angiographic catheter away from the proximal stent. Then, we deployed the remainder of the proximal stent by turning the second stent release knob half turn counter-clockwise and then we steadily pulled the knob out. After that, we did inject the and we did wait for 14 minutes. We did intermittent fluoroscopy to observe the filling of the graft with the radial back filling with the radial back polymer. Subsequently we obtained contralateral limb access lumen with guidewire which was an 0.035 Glidewire via contralateral cannulation. Subsequently, we inserted the mocked pigtail catheter over the Glidewire on the contralateral limb to assess the length of the contralateral limb. We placed on the contralateral limb 14 x 140 iliac limb delivery system. Then the limb was deployed under fluoroscopy guidance. The proximal iliac limb radiopaque marker was aligned with the most proximal half ring of the aortic candelaria. We assured that before we deployed the contralateral limb. Subsequently for the ipsilateral limb, we placed a 16 x 100. That was placed over 035 stiff Amplatz wire. We did the same assurance that the proximal ipsilateral limb marker was aligned with the most proximal half ring of the aortic candelaria. The ipsilateral limb was deployed under fluoroscopy guidance. We had to have an extension which was full. We did extend the ipsilateral limb using additional 16 x 120. That was performed under fluoroscopy guidance as well. Finally, we inserted a pigtail catheter for final angiogram which revealed possible type 1 endoleak. We did close both groins using the 2 Perclose, which we placed at the beginning of the procedure. The procedure was completed without any complication. POSTPROCEDURE MANAGEMENT: 1. CTA in about 4 weeks from now. 2. Continuous ultrasound surveillance. 3. Follow up with the patient. MORGAN / NYA: [id number] /
[2018-12-29 04:44] LABS: Anion Gap 6 mmol/L; Blood Urea Nitrogen 13 mg/dL (9-20); Calcium 7.9 mg/dL (8.4-10.2); Carbon Dioxide 21 mmol/L (22-30); Chloride 106 mmol/L (98-107); Glucose 97 mg/dL (74-99); Potassium 4.1 mmol/L (3.5-5.1); Sodium 133 mmol/L (137-145)
[2018-12-29 06:16] LABS: Basophils % (A) 0 %; Eosinophils % (A) 0 %; HCT 33.4 % (39.0-53.0); HGB 11.1 gm/dL (13.0-17.5); Lymphocytes % (A) 10 %; MCH 33.3 pg (25.0-35.0); MCHC 33.2 g/dL (31.0-37.0); MCV 100.1 fL (80.0-100.0); Macrocytosis Slight; Mean Platelet Volume 8.4; Monocytes # (A) 0.5 k/uL (0-1.0); Monocytes % (A) 5 %; Neutrophils # (A) 8.4 k/uL (1.3-7.7); Neutrophils % (A) 84 %; Platelet Count 122 k/uL (150-450); RBC 3.33 m/uL (4.30-5.90); RDW 14.6 % (11.5-15.5)
--- NOTE | 2018-12-29 07:47 | DS ---
DISCHARGE SUMMARY ADMISSION DATE: December 28, 2018 DISCHARGE DATE: December 29, 2018 BRIEF HISTORY: This is a pleasant 73-year-old gentleman who sees Dr. Lor Guzmán as an outpatient who was diagnosed recently with enlarging abdominal aortic aneurysm. He underwent yesterday successful percutaneous repair of abdominal aortic aneurysm using the Ovation iX device with evidence of possible type 1 endoleak by the end of the procedure. The procedure was performed under general anesthesia. On follow up with him today, he is doing good and he is asymptomatic from a cardiovascular standpoint of view. He has both groins are soft and nontender and without any bruises. The patient is going to be discharged home and I will follow up with him next week in the office. MMODL / IJN: [id number] /
--- NOTE | 2018-12-29 10:19 | IR ---
Fluoroscopy HISTORY: Aortic aneurysm 24.1 minutes fluoroscopy time supplied to the referring clinician. 629 intraoperative C-arm images d ocument the procedure. See dictated report from cardiology.
[2018-12-29 13:24] VITALS: BP 125/69; PULSE 69; RESP 13; TEMP 98.3
== END 2018-12-29 13:38 | disposition home or self-care (01) | DRG 269 ==
LOC: 2ORMAIN 09:56 → 2SICU 13:17
PROVIDERS: ADMIT Internal Medicine Interventional Cardiology; ATTEND Internal Medicine Interventional Cardiology
PROC: 04V03DZ Restriction of Abdominal Aorta with Intraluminal Device, Percutaneous Approach (ICD-10-PCS; principal; 2018-12-28 11:07)
DX: I71.4 Abdominal aortic aneurysm, without rupture (principal); I48.0 Paroxysmal atrial fibrillation; J44.9 Chronic obstructive pulmonary disease, unspecified; I10 Essential (primary) hypertension; F17.210 Nicotine dependence, cigarettes, uncomplicated; H91.90 Unspecified hearing loss, unspecified ear; K21.9 Gastro-esophageal reflux disease without esophagitis; I73.9 Peripheral vascular disease, unspecified; F17.290 Nicotine dependence, other tobacco product, uncomplicated; Z95.2 Presence of prosthetic heart valve; Z95.810 Presence of automatic (implantable) cardiac defibrillator; Z79.01 Long term (current) use of anticoagulants
CPT/HCPCS: 34705; 80048; 85025; 85347; 86850; 86900; 86901

== ENCOUNTER → 2019-02-02 | Outpatient (CLI) | payer MEDICARE, BC ==
--- NOTE | 2019-02-02 11:02 | CT ---
EXAMINATION TYPE: CT angio abdomen DATE OF EXAM: 02/02/2019 COMPARISON: 12/06/2018 HISTORY: Aortic Abdominal Aneurysm without rupture CT DLP: 1140 mGycm, Automated Exposure Control for Dose Reduction was Utilized. CONTRAST: CT scan of the abdomen and pelvis is performed with oral and without and with IV Contrast, patient in jected with 100 mL of Isovue 370. FINDINGS: VASCULATURE: There is a dual-lumen aortic biiliac stent graft originating approximately 3 cm inferior to the left renal artery. There is a second endovascular stent bridging the descending thoracic aort a and upper abdominal aorta through the diaphragmatic hiatus. On the noncontrast images there is hype rdense graft material seen without intramural hematoma. The venetie ira abdominal with aneurysmal dilatation measures up to 5.9 x 5.4 cm in transverse by anterior posterior dimension, stable from the prior. Repair has been performed in the interim. Craniocaudal d imension of the aneurysm measures approximately 9.7 cm. There is a hyperdense focus that is hyperdens e on precontrast imaging to the right lateral aspect of the vascular stent on series 11 image 35 and precontrast series 3 image 35. As this is bright on noncontrast imaging this does not represent endol eak. Despite severe atherosclerosis of the venetie ira aorta and repair the celiac axis, superior mesenteric ar karey, and renal arteries are patent. There is ostial stenosis of the right renal artery. Distal branc hes of the inferior mesenteric artery appear patent although likely from collateral blood flow. The c ommon iliac arteries contain endovascular stent and are nonenlarged measuring 1.4 cm on the right and 1.3 cm on the left. The visualized portions of the external iliac arteries and femoral arteries appe ar patent however there is a focal intimal flap of the left femoral artery concerning for focal disse ction on image 71. This is seen on one image and not reproduced on the coronal images and therefore m ay be artifactual. Extensive atherosclerosis of the internal iliac arteries is seen although proximal ly and the visualized portions appear patent. LUNG BASES: Extensive emphysematous changes, increased anterior posterior diameter of the chest and C OPD, and honeycombing at the right lung base indicative of fibrosis are all redemonstrated. Again one of the loops of the cardiac device extend into the suprahepatic inferior vena cava but is unchanged. LIVER/GB: There remains a vascular blush of contrast in the left hepatic lobe on the angiographic pha se of the liver on series 11 image 19 unchanged from the prior 12/06/2018. This could represent an collin rial portal shunt or flash filling hemangioma with other etiologies less likely. Evaluation of the li kassidy enhancement is limited in the angiographic phase however no other discrete abnormal enhancing les ions are seen. The liver is enlarged extending past the iliac crest. Multiple layering small gallston es or highly concentrated biliary sludge is seen layering dependently in the gallbladder. PANCREAS: There is a questionable approximately 5 mm cystic pancreatic lesion within the pancreatic b zahira on series 11 image 19 and main pancreatic ductal prominence near the pancreatic head measuring up to 3 mm. SPLEEN: No significant abnormality is seen. ADRENALS: No significant abnormality is seen. KIDNEYS: There is a punctate 1 to 2 mm nonobstructing left renal calculus on series 3 image 24. No ri ght renal calculi are seen.. BOWEL: There is a largely intrathoracic stomach. There is moderate to severe colonic fecal retention and small bowel feces sign in multiple loops of small bowel with slight small bowel wall thickening o f the upper abdominal small bowel in the duodenum. No dilated large or small bowel. PROSTATE/SEMINAL VESICLES: The prostate gland is enlarged and heterogenous measuring up to 5.8 cm in transverse dimension. LYMPH NODES: No greater than 1cm abdominal or pelvic lymph nodes are appreciated. OSSEOUS STRUCTURES: There is diffuse osseous demineralization present. With chronic superior endplate deformities of L3 and L4 and otherwise mild multilevel degenerative changes of the thoracolumbar spi ne. IMPRESSION: 1. Multifocal abdominal aortic aneurysm repair without evidence of endoleak. And endovascular stent b ridges the descending thoracic aorta and upper abdominal aorta through the diaphragmatic hiatus and a second infrarenal aortobiiliac endovascular stent graft traverses the stable abdominal aortic aneury sm measuring 5.9 x 5.4 cm and extending approximately 9.7 cm in length terminating at the aortoiliac bifurcation. 2. Questionable focal left common femoral small dissection that is likely artifact as it is not repro ducible on coronal reformatted images and seen on one axial image only. Correlate for any recent vasc ular intervention in the left femoral artery. 3. Pancreatic ductal prominence and possible 5 mm cystic pancreatic body lesion for which MRCP is rec ommended. 4. Extensive emphysematous changes of the visualized lungs and evidence of pulmonary fibrosis. 5. Stable focal blush within the left hepatic lobe favored to represent an arterial portal shunt or f lash filling hemangioma. 6. Largely intrathoracic stomach.
== END | disposition home or self-care (01) ==
LOC: RADCTMAIN 08:27
PROVIDERS: ATTEND Internal Medicine Interventional Cardiology
DX: J43.9 Emphysema, unspecified (principal); J84.10 Pulmonary fibrosis, unspecified; Z95.828 Presence of other vascular implants and grafts
CPT/HCPCS: 82565; 84520; 74175; 36415; Q9967

== ENCOUNTER → 2019-08-31 | Outpatient (CLI) | payer MEDICARE, BC ==
[2019-08-31 11:12] LABS: African American GFR (CKD) >90 (>60 ml/min/1.73 sqM); Blood Urea Nitrogen 15 mg/dL (9-20); Non-African American GFR(CKD) 78 (>60 ml/min/1.73 sqM)
--- NOTE | 2019-08-31 12:29 | CT ---
EXAMINATION TYPE: CT angio abdomen DATE OF EXAM: 08/31/2019 COMPARISON: 02/02/2019 and 2018. 01/16/2018. HISTORY: 74-year-old male Follow up AAA repair. CT DLP: 644.3 mGycm, Automated Exposure Control for Dose Reduction was Utilized. Technique: CT scan of the abdomen and pelvis is performed without and with IV Contrast, patient injec noe with 100 mL of Isovue 370. Additional delayed scan through the abdominal aortic stent graft was p erformed. Coronal and sagittal MIP reconstructions. 3-D reconstructions generated on a dedicated [employer] workstation. FINDINGS: Median sternotomy wires. There seems to be prosthetic aortic valve. Ascending aorta ectatic at 3.8 cm . Emphysematous change in the visualized lower lungs along with the large hiatal hernia. Redemonstrated endovascular aortic stent graft along the upper abdominal aorta extending from the lev el of the diaphragmatic hiatus. Stent graft ends below the level of the renal arteries where focal ec suze and tortuosity is demonstrated, possible radiolucent segment of the stent graft. This transitio ns to a double-lumen aorta biiliac stent graft across the patient's 9 cm long aneurysmal [place] sac w hich measures 5.3 x 4.1 cm versus 5.9 x 5.4 cm on 02/02/2019. No abnormal contrast accumulation within the [place] sac. The stented left common iliac artery is ectatic at 1.8 cm and the right is ectatic at 1.6 cm versus 1 .3 and 1.4 cm, respectively on 02/02/2019. There may be a moderate to severe focal atherosclerotic brandt rowing just beyond the left common iliac artery landing zone. Stable focal intraluminal irregularity along the left common femoral artery, axial image 79. Layering sludge redemonstrated within the gallbladder as well as stable vascular blush left hepatic l obe probable flash filling hemangioma or vascular shunting. Pancreas, adrenal glands, kidneys, and spleen show no gross abnormality. There is moderate stool burden. No dilated small bowel, free fluid, or free air. No mesenteric or ret roperitoneal lymphadenopathy. Prostate gland is enlarged measuring 5.6 cm wide. There is a new large left hydrocele. Additional fluid extending along the right inguinal canal. Findi ngs require clinical correlation. Bones: Vertebral compression deformity of T10 and superior endplate deformities of L3 and L4 appear c hronic. T10 vertebral body height loss has progressed from 01/16/2018. Stable from 12/06/2018. IMPRESSION: 1. Redemonstrated endovascular stent graft repair of the patient's AAA. Stent graft begins at the malini phragmatic hiatus with stent material ending just below the takeoff of the renal arteries. There may be an interposed radiolucent segment of the stent graft prior to transition to a double lumen aortobi iliac stent graft across the patient's 9 cm long infrarenal [place] sac (now decreased in size at 5.3 x 4.1 cm versus 5.9 x 5.4 cm on 02/02/2019). 2. No CT findings of endoleak. 3. Increasing ectasia of the stented left and right common iliac arteries at 1.8 and 1.6 cm (versus 1 .3 and 1.4 cm, respectively on 02/02/2019). 4. There may be a focal moderate to severe stenosis just beyond the left common iliac artery landing zone. 5. Stable intraluminal irregularity within the left common femoral artery could represent some loose plaque or tiny dissection flap. 6. COPD, large hiatal hernia, layering sludge, moderate stool burden, prostatomegaly. 7. New large left hydrocele and new fluid within the right internal canal. Further clinical correlati on recommended.
== END | disposition home or self-care (01) ==
LOC: RADCTMAIN 10:19
PROVIDERS: ATTEND Internal Medicine Interventional Cardiology
DX: Z09 Encounter for follow-up examination after completed treatment for conditions other than malignant neoplasm (principal); J44.9 Chronic obstructive pulmonary disease, unspecified; N43.3 Hydrocele, unspecified; I71.4 Abdominal aortic aneurysm, without rupture; Z98.890 Other specified postprocedural states
CPT/HCPCS: 82565; 84520; 74175; 36415; Q9967

== ENCOUNTER 2020-08-21 23:01 | Inpatient (IN) | payer MEDICARE, BC ==
[2020-08-21] MEDS ORDERED: MORPHINE SULFATE 4 MG/ML SYRINGE IM STA (23:10)
--- NOTE | 2020-08-21 23:58 | CT ---
EXAMINATION TYPE: CT brain mick parker con DATE OF EXAM: 08/21/2020 COMPARISON: None HISTORY: fall Headache. Neck pain CT DLP: 1372.4 mGycm Automated exposure control for dose reduction was used. There is diffuse cerebral cortical atrophy. There is patchy hypodensity in the periventricular white matter. There is no mass effect nor midline shift. There is no sign of intracranial hemorrhage. Kamryn rium is intact. The skull base is intact. There is normal aeration of the mastoid sinuses. Cervical vertebra show a dextroscoliosis deformity. There is no significant disc space narrowing. Pos terior elements are intact. Facet joints are intact. There is no sign of a fracture. There is slight increased lordotic curvature of the cervical spine. There is no evidence of a fracture. IMPRESSION: Cerebral atrophy and chronic small vessel ischemia. No acute intracranial abnormality. Cervical dextroscoliosis deformity and increased lordosis. No fracture seen.
--- NOTE | 2020-08-22 00:04 | XR ---
EXAMINATION TYPE: XR Hip LT and AP Pelvis DATE OF EXAM: 08/22/2020 COMPARISON: NONE HISTORY: Fall. Hip pain TECHNIQUE: Review FINDINGS: There is an acute intertrochanteric fracture of the left femur. The pelvic ring appears in tact. Sacroiliac joints are intact. There is stent in the iliac arteries. IMPRESSION: Acute intertrochanteric fracture left femur with up to 1 cm displacement.
--- NOTE | 2020-08-22 00:05 | XR ---
EXAMINATION TYPE: XR chest 1V DATE OF EXAM: 08/22/2020 COMPARISON: 05/31/2018 HISTORY: Hip fracture TECHNIQUE: 2 views FINDINGS: There is mild pulmonary congestion. There is pulmonary interstitial mild edema. There is sl ight blunting of the costophrenic angles. Thoracic aorta is atheromatous. There are sternal wires. Th ere is left axillary pacemaker. IMPRESSION: There is evidence for new mild congestive heart failure compared to old exam.
[2020-08-22] MEDS ORDERED: ONDANSETRON 4 MG/2 ML VIAL IVP STA (00:08)
[2020-08-22] MEDS ORDERED: HYDROmorphone 0.5 MG/0.5 ML SYRINGE IVP STA (00:08)
[2020-08-22 00:42] LABS: Anisocytosis Slight; Basophils % (A) 0 %; Eosinophils # (A) 0.1 k/uL (0-0.7); Eosinophils % (A) 1 %; HCT 37.6 % (39.0-53.0); HGB 12.1 gm/dL (13.0-17.5); Hypochromasia Slight; Lymphocytes % (A) 12 %; MCH 33.2 pg (25.0-35.0); MCHC 32.1 g/dL (31.0-37.0); MCV 103.6 fL (80.0-100.0); Macrocytosis Moderate; Mean Platelet Volume 7.3; Monocytes # (A) 0.3 k/uL (0-1.0); Monocytes % (A) 4 %; Neutrophils # (A) 6.7 k/uL (1.3-7.7); Neutrophils % (A) 82 %; Platelet Count 169 k/uL (150-450); RBC 3.63 m/uL (4.30-5.90); RDW 16.4 % (11.5-15.5); WBC 8.2 k/uL (3.8-10.6)
[2020-08-22 00:55] LABS: INR 1.4 (<1.2); Prothrombin Time 14.2 sec (9.0-12.0)
[2020-08-22 00:59] LABS: ALT 16 U/L (4-49); AST 30 U/L (17-59); African American GFR (CKD) >90 (>60 ml/min/1.73 sqM); Albumin 3.5 g/dL (3.5-5.0); Alkaline Phosphatase 84 U/L (38-126); Anion Gap 4 mmol/L; Blood Urea Nitrogen 22 mg/dL (9-20); Calcium 8.5 mg/dL (8.4-10.2); Carbon Dioxide 23 mmol/L (22-30); Chloride 109 mmol/L (98-107); Glucose 114 mg/dL (74-99); Non-African American GFR(CKD) 82 (>60 ml/min/1.73 sqM); Potassium 4.4 mmol/L (3.5-5.1); Sodium 136 mmol/L (137-145); Total Bilirubin 1.3 mg/dL (0.2-1.3); Total Protein 6.6 g/dL (6.3-8.2)
[2020-08-22] MEDS ORDERED: ONDANSETRON 4 MG/2 ML VIAL IVP PRN (01:18)
[2020-08-22] MEDS ORDERED: NALOXONE 0.4 MG/ML 1 ML VIAL IV PRN (01:18)
--- NOTE | 2020-08-22 01:22 | ED ---
Fall HPI - General Chief Complaint: Fall Stated Complaint: Fall, Hip Pain Time Seen by Provider: 08/21/20 23:03 Source: EMS Mode of arrival: EMS - History of Present Illness Initial Comments: 75-year-old male patient presents to the emergency department today for evaluation of left hip pain after experiencing a fall. Patient states that he was walking through his home when he lost his balance and fell landing on the left side. Denies hitting his head or losing consciousness. Denies any numbness or tingling to the lower extremities. States he is having pain in the left hip. Denies any previous injury to this hip. Denies any neck or back pain. Patient denies any chest pain, shortness of breath, dizziness, weakness, abdominal pain, nausea, vomiting, or difficulties with bowel movements or urination. - Related Data Home Medications Medication Instructions Recorded Confirmed Rivaroxaban [Xarelto] 1 tab PO DAILY 08/22/20 08/22/20 Allergies Allergy/AdvReac Type Severity Reaction Status Date / Time No Known Allergies Allergy Verified 12/28/18 14:31 Review of Systems ROS Statement: Those systems with pertinent positive or pertinent negative responses have been documented in the HPI. ROS Other: All systems not noted in ROS Statement are negative. Past Medical History Past Medical History: Atrial Fibrillation, GERD/Reflux, Hypertension, Skin Disorder Additional Past Medical History / Comment(s): AORTIC VALVE REPLACED, PACEMAKER. NO LONGER ON HTN RX SINCE 2016. PSORIASIS. History of Any Multi-Drug Resistant Organisms: None Reported Past Surgical History: Cardiac Valve Replacement, Hernia Repair, Pacemaker Additional Past Surgical History / Comment(s): AORTIC Valve Replacement. Past Anesthesia/Blood Transfusion Reactions: No Reported Reaction Type of Cardiac Device: Permanent Pacemaker Device Placement Date:: 2008 Past Psychological History: No Psychological Hx Reported Smoking Status: Current every day smoker Past Alcohol Use History: None Reported Past Drug Use History: None Reported - Past Family History Mother Family Medical History: No Reported History Father Family Medical History: No Reported History General Exam Limitations: no limitations General appearance: alert, in no apparent distress, other (Physical well- developed, well-nourished adult male patient in no acute distress. Vital signs upon presentation are temperature 98.0F, pulse 60, respirations 18, blood pressure 159/80, pulse ox 99% on room air.) Neck exam: Present: normal inspection, full ROM, other (Nontender, no step-off, no deformity to firm midline palpation of the posterior cervical spine. Full range of motion without pain or limitation.). Absent: tenderness, meningismus, lymphadenopathy Respiratory exam: Present: normal lung sounds bilaterally. Absent: respiratory distress, wheezes, rales, rhonchi, stridor Cardiovascular Exam: Present: regular rate, normal rhythm, normal heart sounds. Absent: systolic murmur, diastolic murmur, rubs, gallop, clicks GI/Abdominal exam: Present: soft, normal bowel sounds. Absent: distended, tenderness, guarding, rebound, rigid Extremities exam: Present: normal inspection, full ROM, tenderness (Left lateral hip tenderness), normal capillary refill, other (Skin to the left lower ex tremity is pink, warm, dry. Cap refill less than 3 seconds. Pedal pulses 2+). Absent: pedal edema, joint swelling, calf tenderness Back exam: Present: normal inspection, other (Nontender, no step-off, no deformity to firm midline palpation of the thoracic and lumbar vertebrae. Full range of motion without pain or limitation.). Absent: vertebral tenderness Neurological exam: Present: alert, oriented X3, CN II-XII intact Psychiatric exam: Present: normal affect, normal mood Skin exam: Present: warm, dry, intact, normal color. Absent: rash Course Vital Signs 08/21/20 08/21/20 08/21/20 23:05 23:07 23:10 Temperature 98.0 F Pulse Rate 60 69 Respiratory 18 18 Rate Blood Pressure 159/80 159/80 O2 Sat by Pulse 100 99 99 Oximetry 08/21/20 08/21/20 08/21/20 23:20 23:30 23:40 Temperature Pulse Rate 73 69 Respiratory 18 18 18 Rate Blood Pressure 159/80 159/80 143/80 O2 Sat by Pulse 99 98 98 Oximetry 08/21/20 08/22/20 08/22/20 23:50 00:00 00:10 Temperature 98.6 F Pulse Rate 70 Respiratory 18 Rate Blood Pressure 143/80 143/80 146/96 O2 Sat by Pulse 99 99 Oximetry 08/22/20 08/22/20 08/22/20 00:20 00:30 00:40 Temperature Pulse Rate Respiratory Rate Blood Pressure 146/96 146/96 162/87 O2 Sat by Pulse 99 98 96 Oximetry 08/22/20 08/22/20 08/22/20 00:50 01:00 01:10 Temperature Pulse Rate Respiratory Rate Blood Pressure 162/87 162/87 157/83 O2 Sat by Pulse 95 97 98 Oximetry 08/22/20 08/22/20 01:20 01:30 Temperature Pulse Rate Respiratory Rate Blood Pressure 157/83 157/83 O2 Sat by Pulse 96 97 Oximetry Medical Decision Making - Medical Decision Making 75-year-old male patient presents to the emergency department today for evaluation after experiencing a fall at home. States he lost his balance and fell on the left side. Physical examination did reveal left lateral hip tenderness. Patient is keeping the hip and flexed position is unable to determine any shortening or rotation. Neurovascular status is intact. X-ray was obtained and did show an intertrochanteric fracture of the left hip with 1 cm of displacement. Labs were then obtained and showed evidence for decreased hemoglobin at 12.1, INR 1.4, BUN 22. Chest x-ray did show possible mild congestive heart failure which is new compared to old exam. He'll be admitted to Dr. Matthews. Medicine was consulted for medical management. We will hold his xarelto, surgery is planned for a couple days. - Lab Data Result diagrams: 08/22/20 00:33 08/22/20 00:33 Lab Results 08/22/20 08/22/20 08/22/20 Range/Units 00:33 00:33 00:33 WBC 8.2 (3.8-10.6) k/uL RBC 3.63 L (4.30-5.90) m/uL Hgb 12.1 L (13.0-17.5) gm/dL Hct 37.6 L (39.0-53.0) % MCV 103.6 H (80.0-100.0) fL MCH 33.2 (25.0-35.0) pg MCHC 32.1 (31.0-37.0) g/dL RDW 16.4 H (11.5-15.5) % Plt Count 169 (150-450) k/uL MPV 7.3 Neutrophils % 82 % Lymphocytes % 12 % Monocytes % 4 % Eosinophils % 1 % Basophils % 0 % Neutrophils # 6.7 (1.3-7.7) k/uL Lymphocytes # 1.0 (1.0-4.8) k/uL Monocytes # 0.3 (0-1.0) k/uL Eosinophils # 0.1 (0-0.7) k/uL Basophils # 0.0 (0-0.2) k/uL Hypochromasia Slight Anisocytosis Slight Macrocytosis Moderate PT 14.2 H (9.0-12.0) sec INR 1.4 H (<1.2) APTT 34.0 H (22.0-30.0) sec Sodium 136 L (137-145) mmol/L Potassium 4.4 (3.5-5.1) mmol/L Chloride 109 H (98-107) mmol/L Carbon Dioxide 23 (22-30) mmol/L Anion Gap 4 mmol/L BUN 22 H (9-20) mg/dL Creatinine 0.90 (0.66-1.25) mg/dL Est GFR (CKD-EPI)AfAm >90 (>60 ml/min/1.73 sqM) Est GFR (CKD-EPI)NonAf 82 (>60 ml/min/1.73 sqM) Glucose 114 H (74-99) mg/dL Calcium 8.5 (8.4-10.2) mg/dL Total Bilirubin 1.3 (0.2-1.3) mg/dL AST 30 (17-59) U/L ALT 16 (4-49) U/L Alkaline Phosphatase 84 (38-126) U/L Total Protein 6.6 (6.3-8.2) g/dL Albumin 3.5 (3.5-5.0) g/dL Blood Type Blood Type Recheck Bld Type Recheck Status Antibody Screen Spec Expiration Date 08/22/20 Range/Units 00:33 WBC (3.8-10.6) k/uL RBC (4.30-5.90) m/uL Hgb (13.0-17.5) gm/dL Hct (39.0-53.0) % MCV (80.0-100.0) fL MCH (25.0-35.0) pg MCHC (31.0-37.0) g/dL RDW (11.5-15.5) % Plt Count (150-450) k/uL MPV Neutrophils % % Lymphocytes % % Monocytes % % Eosinophils % % Basophils % % Neutrophils # (1.3-7.7) k/uL Lymphocytes # (1.0-4.8) k/uL Monocytes # (0-1.0) k/uL Eosinophils # (0-0.7) k/uL Basophils # (0-0.2) k/uL Hypochromasia Anisocytosis Macrocytosis PT (9.0-12.0) sec INR (<1.2) APTT (22.0-30.0) sec Sodium (137-145) mmol/L Potassium (3.5-5.1) mmol/L Chloride (98-107) mmol/L Carbon Dioxide (22-30) mmol/L Anion Gap mmol/L BUN (9-20) mg/dL Creatinine (0.66-1.25) mg/dL Est GFR (CKD-EPI)AfAm (>60 ml/min/1.73 sqM) Est GFR (CKD-EPI)NonAf (>60 ml/min/1.73 sqM) Glucose (74-99) mg/dL Calcium (8.4-10.2) mg/dL Total Bilirubin (0.2-1.3) mg/dL AST (17-59) U/L ALT (4-49) U/L Alkaline Phosphatase (38-126) U/L Total Protein (6.3-8.2) g/dL Albumin (3.5-5.0) g/dL Blood Type A Positive Blood Type Recheck A Pos Bld Type Recheck Status No Antibody Screen NEGATIVE Spec Expiration Date 08/25/20202332 - EKG Data -: EKG Interpreted by Vt EKG Comments: EKG obtained at 00 20 shows ventricular paced rhythm with a rate of 60. QRS duration 150, QTC 500, QTc 500. - Radiology Data Radiology results: report reviewed, image reviewed CT brain C-spine without contrast was obtained. Report was reviewed in its entirety. Impression by Dr. Delaney shows cerebral atrophy and chronic small vessel ischemia. No acute intracranial abnormality. Cervical dextroscoliosis deformity increased lordosis. No fracture seen. 2 views of the right hip and one view of the pelvis is obtained. Report was reviewed in its entirety. Impression by Dr. Delaney shows acute intertrochanteric fracture left femur with up to 1 cm displacement. Two-view x-ray of the chest is obtained. Report was reviewed in its entirety. Impression by Dr. Delaney shows evidence for pneumonia congestive heart failure compared to old exam. Disposition Clinical Impression: Closed left hip fracture Disposition: ADMITTED IP TO THIS [facility] Condition: Serious Decision to Admit Reason: Admit from EC Decision Date: 08/22/20 Decision Time: 01:22
[2020-08-22] MEDS ORDERED: IPRATROPIUM-ALBUTEROL 3 ML NEB INHALATION PRN (08:28)
--- NOTE | 2020-08-22 09:21 | P.HPOR ---
History of Present Illness H&P Date: 08/22/20 Chief Complaint: Left hip pain status post fall Patient is a very pleasant 75-year-old male who was seen and examined today at bedside. Apparently he sustained a fall yesterday overnight at home. He was trying to get up and walk to the bathroom when he turned and tripped and stumbled and fell onto his left hip. He denies any headaches. Denies any loss of consciousness. He denies any prior pain in his left hip. He says it normally he endplates with a cane but is able get around. He helps with his at home who has MS. She denies any other pain or trauma. The pain is centered at his left hip whenever he tries to move. Denies any neck pain or head pain. He denies any nausea or vomiting. He says that the only medicine he takes at home is his blood thinner. Review of Systems As stated per HPI. Denies any chest pain shortness of breath. Denies any antecedent pain in his left leg or side. Denies any changes in bowel bladder function. He does have a history of atrial fibrillation and is on blood thinners with Xarelto Past Medical History Past Medical History: Atrial Fibrillation, GERD/Reflux, Hypertension, Skin Disorder Additional Past Medical History / Comment(s): AORTIC VALVE REPLACED, PACEMAKER. NO LONGER ON HTN RX SINCE 2016. PSORIASIS. History of Any Multi-Drug Resistant Organisms: None Reported Past Surgical History: Cardiac Valve Replacement, Hernia Repair, Pacemaker Additional Past Surgical History / Comment(s): AORTIC Valve Replacement. Past Anesthesia/Blood Transfusion Reactions: No Reported Reaction Type of Cardiac Device: Permanent Pacemaker Device Placement Date:: 2008 Past Psychological History: No Psychological Hx Reported Smoking Status: Current every day smoker Past Alcohol Use History: None Reported Past Drug Use History: None Reported - Past Family History Mother Family Medical History: No Reported History Father Family Medical History: No Reported History Medications and Allergies Home Medications Medication Instructions Recorded Confirmed Type Rivaroxaban [Xarelto] 20 mg PO PC-SUPPER 08/22/20 08/22/20 History Allergies Allergy/AdvReac Type Severity Reaction Status Date / Time No Known Allergies Allergy Verified 08/22/20 08:15 Physical Examination Osteopathic Statement: *. No significant issues noted on an osteopathic structural exam other than those noted in the History and Physical/Consult. - Hip left Gait: other (Patient unable to mobilize due to his pain his hip. He is in bed. His upper extremity is have full active and passive range of motion. His back is nontender. Abdomen soft and his chest has good excursion deep inspiration and expiration) Tenderness with palpation: lateral (The patient is in bed with his leg slightly flexed. He has significant pain with any motion around his left hip. His thighs Soft nontender. He has sustained dorsal flexion plantar flexion and EHL bilaterally. His abdomen soft nontender. Neck is good active and passive range motion. ) Results - Labs Labs: Abnormal Lab Results - Last 24 Hours (Table) 08/22/20 08/22/20 08/22/20 Range/Units 00:33 00:33 00:33 RBC 3.63 L (4.30-5.90) m/uL Hgb 12.1 L (13.0-17.5) gm/dL Hct 37.6 L (39.0-53.0) % MCV 103.6 H (80.0-100.0) fL RDW 16.4 H (11.5-15.5) % PT 14.2 H (9.0-12.0) sec INR 1.4 H (<1.2) APTT 34.0 H (22.0-30.0) sec Sodium 136 L (137-145) mmol/L Chloride 109 H (98-107) mmol/L BUN 22 H (9-20) mg/dL Glucose 114 H (74-99) mg/dL H & H 08/22/20 Range/Units 00:33 Hgb 12.1 L (13.0-17.5) gm/dL Hct 37.6 L (39.0-53.0) % Coagulation 08/22/20 Range/Units 00:33 INR 1.4 H (<1.2) Result Diagrams: 08/22/20 00:33 08/22/20 00:33 - Diagnostic results Hip x-ray: report reviewed, image reviewed (His pelvis and left hip x-rays show intertrochanteric three-part fracture with displacement at the left proximal femur.) Assessment and Plan Assessment: Left femur intertrochanteric hip fracture status post fall Left hip pain Inability to ambulate due to hip fracture History of valve replacement and atrial fibrillation on Xarelto at home Plan: Left femur intertrochanteric hip fracture status post fall Left hip pain Inability to ambulate due to hip fracture History of valve replacement and atrial fibrillation on Xarelto at home For the patient's hip fracture we discussed the different treatment options for him. We ranged from conservative to surgical. The best treatment option would be to plan for surgical intervention at the left hip. With the type of his hip fracture I think the best surgical course would be to do open reduction internal fixation with intramedullary hip screw. We discussed his case and we discussed the risk of occasions alternatives and benefits of his injury as well as the various treatments. The risks of surgery including but not limited to risk of bleeding risk of infection was need for further surgery risk of decreased loss of motion loss of function malunion nonunion hardware failure nerve damage inability to ambulate change in his and we'll try status was all explained to him and he appears to understand. I answered his questions best my ability in a language that he understand. He would like to proceed with surgical intervention. He is on blood thinners currently with her elevated PT/INR. We will need this to taped down for his surgical intervention. His blood thinners have been held for now. We are awaiting medical and cardiac clearance for him and hopefully could consider surgery as early as tomorrow. It is okay for him to eat today but we will have him nothing by mouth after midnight for Wednesday for possible surgical intervention if he is able to be cleared and his blood counts are normalized.
[2020-08-22] MEDS: HYDROmorphone 0.5 MG/0.5 ML SYRINGE IVP PRN ×2 (10:10→17:00)
--- NOTE | 2020-08-22 11:00 | ECHOF ---
Referral Reason:re: LV EF MEASUREMENTS -------- HEIGHT: 185.4 cm WEIGHT: 68.0 kg BP: 124/70 RVIDd: 5.1 cm (< 3.3) IVSd: 1.6 cm (0.6 - 1.1) LVIDd: 3.3 cm (3.9 - 5.3) LVPWd: 1.3 cm (0.6 - 1.1) IVSs: 1.7 cm LVIDs: 2.4 cm LVPWs: 1.7 cm LAESV Index (A-L): 66.91 ml/m Ao Diam: 3.6 cm (2.0 - 3.7) MV EXCURSION: 15.856 mm (> 18.000) MV EF SLOPE: 101 mm/s (70 - 150) EPSS: 0.3 cm AV maxP.51 mmHg AV meanP.59 mmHg AR PHT: 460 ms RAP: 5.00 mmHg RVSP: 65.75 mmHg FINDINGS -------- This was a technically adequate study. The left ventricular size is normal. There is moderate concentric left ventricular hypertrophy. O verall left ventricular systolic function is low-normal with, an EF between 50 - 55 %. Septal wall motion is delayed and consistent with prior cardiac surgery. The right ventricle is mild to moderately enlarged. LA is severely dilated >40 ml/m2 The right atrium is moderately enlarged. Electronic pacemaker lead seen in the right atrial cavity. Interatrial and interventricular septum intact. Peak/mean gradient across the Aortic Valve is 39.51mmHg / 20.59mmHg. There is mild regurgitation of the bioprosthetic aortic valve. There is moderate stenosis of the bioprosthetic aortic valve. Moderate mitral annular calcification present. Mild mitral regurgitation is present. Severe tricuspid regurgitation present. There is severe pulmonary hypertension. The right ventric ular systolic pressure, as measured by Doppler, is 65.75mmHg. The pulmonic valve was not well visualized. The aortic root size is normal. IVC Not well visulized. There is no pericardial effusion. CONCLUSIONS -------- 1. The left ventricular size is normal. 2. There is moderate concentric left ventricular hypertrophy. 3. Overall left ventricular systolic function is low-normal with, an EF between 50 - 55 %. 4. Septal wall motion is delayed and consistent with prior cardiac surgery. 5. The right ventricle is mild to moderately enlarged. 6. LA is severely dilated >40 ml/m2 7. The right atrium is moderately enlarged. 8. Peak/mean gradient across the Aortic Valve is 39.51mmHg / 20.59mmHg. 9. There is mild regurgitation of the bioprosthetic aortic valve. 10. There is moderate stenosis of the bioprosthetic aortic valve. 11. Moderate mitral annular calcification present. 12. Mild mitral regurgitation is present. 13. Severe tricuspid regurgitation present. 14. There is severe pulmonary hypertension. 15. The right ventricular systolic pressure, as measured by Doppler, is 65.75mmHg. BIOMETRICS INSTRUCTOR: Cristal Jenikns RDCS
--- NOTE | 2020-08-22 11:02 | P.CRDCN ---
History of Present Illness History of present illness: HISTORY OF PRESENTING ILLNESS This is a pleasant 75-year-old male past medical history significant for complete heart block status post permanent pacemaker implantation ([employer]) thousand and 9, valvular heart disease status post aortic valve replacement 2008, history of endovascular stent graft December 2018, hypertension, COPD, paroxysmal atrial fibrillation on Xarelto and chronic nicotine dependence. He follows in the office with Dr. Anaya. We have been asked to see in consultation for atrial fibrillation. He states he woke up in the middle of the night to use the restroom. There was a cat toy on the floor which she moved out of his way and then when he turned around and lost his balance and fell. He denies feeling dizzy or lightheaded. He denies loss of consciousness. X-ray imaging reveals an acute intertrochanteric left femur fracture with [address] of the head and cervical spine reveals cerebral atrophy with chronic small vessel ischemia, no acute intracranial abnormality or fractures of the cervical spine. He has been seen in consultation by orthopedic service and is scheduled for surgery possibly tomorrow. He is seen and examined resting comfortably lying flat in bed in no acute distress. He has no symptoms of chest pain or shortness of breath. He has a poor historian. He states his son manages all of his health care needs and he is unsure of any of his cardiac history. Information is obtained from the office note from Dr. Anaya. DIAGNOSTICS EKG reveals ventricular paced rhythm. He is not currently on the site monitor. Chest xray mild pulmonary congestion with coronary interstitial edema noted. Laboratory reviewed, WBC 8.2, hemoglobin 12.1, platelets 169, INR 1.4, sodium 136, potassium 4.4, creatinine 0.9. Current cardiac medications include Xarelto 20 mg daily. Most recent echocardiogram obtained in the office November 2018 revealed normal LV systolic size and function with mild mitral regurgitation and normally functioning prosthetic aortic valve. He underwent a Lexiscan stress test in October 2018 was negative for reversible ischemia. REVIEW OF SYSTEMS At the time of my exam: CONSTITUTIONAL: Denies fever or chills. CARDIOVASCULAR: Denies chest pain, shortness of breath, orthopnea, PND or palpitations. RESPIRATORY: Denies cough. GASTROINTESTINAL: Denies abdominal pain, diarrhea, constipation, nausea or vomiting. MUSCULOSKELETAL: Complains of left hip and leg pain. NEUROLOGIC: Denies numbness, tingling or weakness. ENDOCRINE: Denies fatigue, weight change, polydipsia or polyurina. GENITOURINARY: Denies burning, hematuria or urgency with micturation. HEMATOLOGIC: Denies history of anemia or bleeding. PHYSICAL EXAMINATION Blood pressure 124/70 heart rate 61 afebrile and maintaining oxygen saturation on room air. CONSTITUTIONAL: No apparent distress. HEENT: Head is normocephalic. Pupils are equal, round. Sclerae anicteric. Mucous membranes of the mouth are moist. No JVD. No carotid bruit. CHEST EXAMINATION: Diminished bilaterally. Lungs are clear to auscultation. No chest wall tenderness is noted on palpation or with deep breathing. HEART EXAMINATION: Regular rate and rhythm. S1, S2 heard. Systolic ejection murmur at the base, no gallops or rub. ABDOMEN: Soft, nontender. Positive bowel sounds. EXTREMITIES: 1+ peripheral pulses, no lower extremity edema and no calf tenderness. Multiple areas of ecchymosis in different stages of healing. Skin is dry and flaky in places. NEUROLOGIC EXAMINATION: Patient is awake, alert and oriented. ASSESSMENT Mechanical fall, loss of balance. No syncope. Paroxysmal atrial fibrillation on xarelto for thromboembolic protection. s/p aortic valve replacement 2008 with bioprosthetic AV Complete heart block s/p permanent pacemaker implantation 2008 Abdominal aortic aneurysm s/p endovascular repair with Ovation device Chronic nicotine dependence PLAN Clinically the patient is euvolemic. He denies symptoms of angina or syncope. Fall is mechanical in a nature. Xarelto has been on hold pending surgery. Last dose was 08/21/2020. With normal renal function 24 hours off is recommended with half-life of 11-13 hours. He has had a stress test within the last couple years. We will repeat an echocardiogram to assess cardiac structure and function. He is moderate-high risk to undergo surgical intervention, however are no absolute contraindications. Recommend cautious fluid administration and optimal blood pressure control intra-operatively. Thank you kindly for this consultation. Nurse Practitioner note has been reviewed, I agree with a documented findings and plan of care. Patient was seen and examined. Past Medical History Past Medical History: Atrial Fibrillation, GERD/Reflux, Hypertension, Skin Disorder Additional Past Medical History / Comment(s): AORTIC VALVE REPLACED, PACEMAKER. NO LONGER ON HTN RX SINCE 2016. PSORIASIS. History of Any Multi-Drug Resistant Organisms: None Reported Past Surgical History: Cardiac Valve Replacement, Hernia Repair, Pacemaker Additional Past Surgical History / Comment(s): AORTIC Valve Replacement. Past Anesthesia/Blood Transfusion Reactions: No Reported Reaction Type of Cardiac Device: Permanent Pacemaker Device Placement Date:: 2008 Past Psychological History: No Psychological Hx Reported Smoking Status: Current every day smoker Past Alcohol Use History: None Reported Past Drug Use History: None Reported - Past Family History Mother Family Medical History: No Reported History Father Family Medical History: No Reported History Medications and Allergies Home Medications Medication Instructions Recorded Confirmed Type Rivaroxaban [Xarelto] 20 mg PO PC-SUPPER 08/22/20 08/22/20 History Allergies Allergy/AdvReac Type Severity Reaction Status Date / Time No Known Allergies Allergy Verified 08/22/20 08:15 Physical Exam Vitals: Vital Signs Temp Pulse Pulse Resp BP BP Pulse Ox 08/22/20 08:00 61 16 08/22/20 07:44 98.2 F 61 16 124/70 96 08/22/20 02:24 97.9 F 67 16 135/72 95 08/22/20 01:30 157/83 97 08/22/20 01:20 157/83 96 08/22/20 01:10 157/83 98 08/22/20 01:00 162/87 97 08/22/20 00:50 162/87 95 08/22/20 00:40 162/87 96 08/22/20 00:30 146/96 98 08/22/20 00:20 146/96 99 08/22/20 00:10 146/96 99 08/22/20 00:00 143/80 08/21/20 23:50 98.6 F 70 18 143/80 99 08/21/20 23:40 69 18 143/80 98 08/21/20 23:30 18 159/80 98 08/21/20 23:20 73 18 159/80 99 08/21/20 23:10 69 18 159/80 99 08/21/20 23:07 98.0 F 60 18 159/80 99 08/21/20 23:05 100 Intake and Output 08/21/20 08/22/20 08/22/20 22:59 06:59 14:59 Output Total 0 0 Balance 0 0 Output: Stool 0 0 Other: # Voids 0 0 Weight 68.039 kg Results 08/22/20 00:33 08/22/20 00:33 Cardiac Enzymes 08/22/20 Range/Units 00:33 AST 30 (17-59) U/L Coagulation 08/22/20 Range/Units 00:33 PT 14.2 H (9.0-12.0) sec APTT 34.0 H (22.0-30.0) sec CBC 08/22/20 Range/Units 00:33 WBC 8.2 (3.8-10.6) k/uL RBC 3.63 L (4.30-5.90) m/uL Hgb 12.1 L (13.0-17.5) gm/dL Hct 37.6 L (39.0-53.0) % Plt Count 169 (150-450) k/uL Comprehensive Metabolic Panel 08/22/20 Range/Units 00:33 Sodium 136 L (137-145) mmol/L Potassium 4.4 (3.5-5.1) mmol/L Chloride 109 H (98-107) mmol/L Carbon Dioxide 23 (22-30) mmol/L BUN 22 H (9-20) mg/dL Creatinine 0.90 (0.66-1.25) mg/dL Glucose 114 H (74-99) mg/dL Calcium 8.5 (8.4-10.2) mg/dL AST 30 (17-59) U/L ALT 16 (4-49) U/L Alkaline Phosphatase 84 (38-126) U/L Total Protein 6.6 (6.3-8.2) g/dL Albumin 3.5 (3.5-5.0) g/dL Current Medications Generic Name Dose Route Start Last Admin Trade Name Freq PRN Reason Stop Dose Admin Albuterol/Ipratropium 3 ml 08/22/20 13:00 Ipratropium-Albuterol 3 Ml Neb INHALATION RT-TID [facility] Albuterol/Ipratropium 3 ml 08/22/20 08:28 Ipratropium-Albuterol 3 Ml Neb INHALATION RT-QID PRN Shortness Of Breath Or Wheezing Hydromorphone HCl 0.5 mg 08/22/20 01:18 08/22/20 10:10 Hydromorphone 0.5 Mg/0.5 Ml Syringe IVP 0.5 mg Q3HR PRN Administration Moderate Pain Naloxone HCl 0.2 mg 08/22/20 01:18 Naloxone 0.4 Mg/Ml 1 Ml Vial IV Q2M PRN Opioid Reversal Ondansetron HCl 4 mg 08/22/20 01:18 Ondansetron 4 Mg/2 Ml Vial IVP Q8HR PRN Nausea And Vomiting Intake and Output 08/21/20 08/22/20 08/22/20 22:59 06:59 14:59 Output Total 0 0 Balance 0 0 Output: Stool 0 0 Other: # Voids 0 0 Weight 68.039 kg 08/22/20 00:33 08/22/20 00:33
[2020-08-22] MEDS: SODIUM CHLORIDE 0.9% 1,000 ML IV SCH ×2 (11:56→23:58)
[2020-08-22] MEDS: IPRATROPIUM-ALBUTEROL 3 ML NEB INHALATION SCH ×2 (12:12→19:51)
--- NOTE | 2020-08-22 17:29 | P.CONS ---
History of Present Illness - Reason for Consult Consult date: 08/22/20 Medical management - History of Present Illness HISTORY OF PRESENT ILLNESS This is a 75-year-old male patient of Dr. Almeida and Dr. Anaya with past medical history of paroxysmal atrial fibrillation on Xarelto only, aortic valve replacement in 2008, abdominal aortic aneurysm status post endovascular stent graft in December 2018, hypertension, gastro-soft reflux disease, psoriasis, tobacco use and dependence, COPD not previously diagnosed. Patient states that he turned lost his balance and fell. He denies any loss of consciousness. He was unable to stand and did not have pain initially. EMS brought him into [facility] emergency center for evaluation patient was found to have acute intertrochanteric left femur fracture. CAT scan of the head and cervical spine revealed cerebral atrophy with chronic small vessel ischemia. No acute intracranial abnormality or fracture the cervical spine. Patient was admitted by orthopedics and scheduled for surgery tomorrow. Cardiology has evaluated for atrial fibrillation. REVIEW OF SYSTEMS Constitutional: No fever, no chills, no night sweats. No weight change. No weakness, fatigue or lethargy. No daytime sleepiness. EENT: No headache. No blurred vision or double vision, no loss of vision. No loss of Hearing, no ringing in the ears, no dizziness. No nasal drainage or congestion. No epistaxis. No sore throat. Lungs: No shortness of breath, cough, no sputum production. No wheezing. Cardiovascular: No chest pain, no lower extremity edema. No palpitations. No paroxysmal nocturnal dyspnea. No orthopnea. No lightheadedness or dizziness. No syncopal episodes. Abdominal: No abdominal pain. No nausea, vomiting. No diarrhea. No constipation. No bloody or tarry stools.. No loss of appetite. Genitourinary: No dysuria, increased frequency, urgency. No urinary retention. Musculoskeletal: No myalgias. No muscle weakness, no gait dysfunction, no frequent falls. No back pain. No neck pain. Left hip pain Integumentary: No wounds, no lesions. No rash or pruritus. No unusual bruising. No change in hair or nails. Neurologic: No aphasia. No facial droop. No change in mentation. No head injury. No headache. No paralysis. No paresthesia. Psychiatric: No depression. No anxiety. No mood swings. Endocrine: No abnormal blood sugars. No weight change. No excessive sweating or thirst. No cold intolerance. SOCIAL HISTORY Patient is a smoker of at least a half a pack per day for 65 years. He denies any alcohol use marijuana use, illicit drug use. He does not have CPAP at home. He lives at home with his . He is retired from [employer]. FAMILY HISTORY Father at age 80 from myocardial infraction. Mother in in her 80s of unknown cause. Patient has 4 siblings all alive and he does not know their medical history. Patient has one son with no major medical problems.. PHYSICAL EXAMINATION Gen: This is a 75-year-old male. He is resting bed appears to be comfortable and in no acute distress. HEENT: Head is atraumatic, normocephalic. Pupils equal, round. Sclerae is anict seng. NECK: Supple. No JVD. No lymphadenopathy. No thyromegaly. LUNGS: Clear to auscultation. No wheezes or rhonchi. No intercostal retractions. HEART: Regular rate and rhythm. Systolic ejection murmur. ABDOMEN: Soft. Bowel sounds are present. No masses. No tenderness. EXTREMITIES: No pedal edema. No calf tenderness. Dorsalis pedis palpable bilaterally. NEUROLOGICAL: Patient is awake, alert and oriented x3. Cranial nerves 2 through 12 are grossly intact. ASSESSMENT AND PLAN 1. Left intratrochanteric femur fracture. Patient admitted under the care of orthopedics with plan for open reduction internal fixation with intramedullary hip screw, scheduled for tomorrow. Continue current pain management, incentive from a tree to reduce incidence of atelectasis and hospital-acquired pneumonia. Xarelto is on hold 2. Paroxysmal atrial fibrillation. Cardiology consult appreciated. Xarelto is on hold. 3. History of aortic valve replacement, stable. 4. Abdominal aortic aneurysm status post Endovascular stent graft in December 2018. 5. Hypertension, not currently on medication. 6. Gastroesophageal reflux disease. Protonix daily. 7. Psoriasis, stable. 8. Tobacco use and dependence. Smoking cessation. 9. COPD. DuoNeb treatments scheduled 3 times daily and 4 times daily as needed. 10. DVT prophylaxis. Patient will be resumed on Xarelto following surgery. Patient will be admitted to the hospital for a minimum of 2 night stay. DISCHARGE PLAN To be determined. Impression and plan of care have been directed as dictated by the signing physician. Berna Rossi nurse practitioner acting as scribe for signing physician. Past Medical History Past Medical History: Atrial Fibrillation, GERD/Reflux, Hypertension, Skin Disor corey Additional Past Medical History / Comment(s): AORTIC VALVE REPLACED, PACEMAKER. NO LONGER ON HTN RX SINCE 2016. PSORIASIS. History of Any Multi-Drug Resistant Organisms: None Reported Past Surgical History: Cardiac Valve Replacement, Hernia Repair, Pacemaker Additional Past Surgical History / Comment(s): AORTIC Valve Replacement. Past Anesthesia/Blood Transfusion Reactions: No Reported Reaction Type of Cardiac Device: Permanent Pacemaker Device Placement Date:: 2008 Past Psychological History: No Psychological Hx Reported Smoking Status: Current every day smoker Past Alcohol Use History: None Reported Past Drug Use History: None Reported - Past Family History Mother Family Medical History: No Reported History Father Family Medical History: No Reported History Medications and Allergies Home Medications Medication Instructions Recorded Confirmed Type Rivaroxaban [Xarelto] 20 mg PO PC-SUPPER 08/22/20 08/22/20 History Allergies Allergy/AdvReac Type Severity Reaction Status Date / Time No Known Allergies Allergy Verified 08/22/20 08:15 Physical Exam Vitals: Vital Signs Temp Pulse Pulse Resp BP BP Pulse Ox 08/22/20 07:44 98.2 F 61 16 124/70 96 08/22/20 02:24 97.9 F 67 16 135/72 95 08/22/20 01:30 157/83 97 08/22/20 01:20 157/83 96 08/22/20 01:10 157/83 98 08/22/20 01:00 162/87 97 08/22/20 00:50 162/87 95 08/22/20 00:40 162/87 96 08/22/20 00:30 146/96 98 08/22/20 00:20 146/96 99 08/22/20 00:10 146/96 99 08/22/20 00:00 143/80 08/21/20 23:50 98.6 F 70 18 143/80 99 08/21/20 23:40 69 18 143/80 98 08/21/20 23:30 18 159/80 98 08/21/20 23:20 73 18 159/80 99 08/21/20 23:10 69 18 159/80 99 08/21/20 23:07 98.0 F 60 18 159/80 99 08/21/20 23:05 100 Intake and Output 08/21/20 08/22/20 08/22/20 22:59 06:59 14:59 Output Total 0 0 Balance 0 0 Output: Stool 0 0 Other: # Voids 0 0 Weight 68.039 kg Results CBC & Chem 7: 08/22/20 00:33 08/22/20 00:33 Labs: Abnormal Lab Results - Last 24 Hours (Table) 08/22/20 08/22/20 08/22/20 Range/Units 00:33 00:33 00:33 RBC 3.63 L (4.30-5.90) m/uL Hgb 12.1 L (13.0-17.5) gm/dL Hct 37.6 L (39.0-53.0) % MCV 103.6 H (80.0-100.0) fL RDW 16.4 H (11.5-15.5) % PT 14.2 H (9.0-12.0) sec INR 1.4 H (<1.2) APTT 34.0 H (22.0-30.0) sec Sodium 136 L (137-145) mmol/L Chloride 109 H (98-107) mmol/L BUN 22 H (9-20) mg/dL Glucose 114 H (74-99) mg/dL
[2020-08-23 07:06] LABS: INR 1.2 (<1.2); Partial Thromboplastin Time 28.6 sec (22.0-30.0); Prothrombin Time 11.8 sec (9.0-12.0)
--- NOTE | 2020-08-23 08:57 | P.PN ---
Subjective Progress Note Date: 08/23/20 Principal diagnosis: Left hip fracture. Patient is a very pleasant 75-year-old male who was seen and examined today at bedside. Apparently he sustained a fall yesterday overnight at home. He was trying to get up and walk to the bathroom when he turned and tripped and stumbled and fell onto his left hip. He denies any headaches. Denies any loss of consciousness. He denies any prior pain in his left hip. He says it normally he endplates with a cane but is able get around. He helps with his at home who has MS. She denies any other pain or trauma. The pain is centered at his left hip whenever he tries to move. Denies any neck pain or head pain. He denies any n ausea or vomiting. He says that the only medicine he takes at home is his blood thinner. 08/23/2020: The patient has been seen by internal medicine and cardiology and has been cleared for surgical intervention today. He has no new complaints or concerns today. Vital signs are stable. Objective - Vital Signs Vital signs: Vital Signs Temp 99.3 F 08/23/20 02:36 Pulse 61 08/23/20 02:36 Resp 16 08/23/20 02:36 BP 148/83 08/23/20 02:36 Pulse Ox 94 L 08/23/20 02:36 Intake & Output 08/22/20 08/23/20 08/23/20 18:59 06:59 18:59 Output Total 0 700 Balance 0 -700 Output: Urine 700 Stool 0 Other: Voiding Method Indwelling Catheter Indwelling Catheter # Voids 0 - Exam Exam is essentially unchanged. This is a pleasant 75-year-old male in no acute distress. He is alert and oriented 3. Exam of the left lower extremity reveals some shortening and external rotation. He has pain with motion of the left hip. Neurovascular status to the lower extremities intact. - Labs CBC & Chem 7: 08/22/20 00:33 08/22/20 00:33 Labs: Abnormal Lab Results - Last 24 Hours (Table) 08/23/20 Range/Units 06:29 INR 1.2 H (<1.2) Assessment and Plan (1) Closed left hip fracture Current Visit: Yes Status: Acute Code(s): S72.002A - FRACTURE OF UNSP PART O F NECK OF LEFT FEMUR, INIT SNOMED Code(s): 943581085 (2) A-fib Current Visit: No Status: Acute Code(s): I48.91 - UNSPECIFIED ATRIAL FIBRILLATION SNOMED Code(s): 92177361 Plan: The clinical findings are discussed with the patient. I had a phone conversation with his son. We are planning or today for close reduction with insertion of intertrochanteric nail of the left hip. He will likely need inpatient rehab postoperatively.
[2020-08-23] MEDS: IPRATROPIUM-ALBUTEROL 3 ML NEB INHALATION SCH ×3 (09:27→19:09)
[2020-08-23 09:53] LABS: Appearance,Urine Clear (Clear); Bacteria,Urine Occasional /hpf; Bilirubin,Urine Negative (Negative); Blood,Urine Moderate (Negative); Color,Urine Yellow; Glucose,Urine (UA) Negative (Negative); Ketones,Urine Negative (Negative); Leukocyte Esterase,Urine Large (Negative); Mucus,Urine Few /hpf; Nitrite,Urine Negative (Negative); Protein,Urine Trace (Negative); RBC,Urine 154 /hpf (0-5); Specific Gravity,Urine 1.023 (1.001-1.035); Squamous Epithelial Cell,Urine <1 /hpf (0-4); Urobilinogen,Urine >12.0 mg/dL (<2.0); WBC,Urine 63 /hpf (0-5)
[2020-08-23] MEDS ORDERED: IV FLUID CONTINUATION 250 ML IV ONE (11:21)
[2020-08-23] MEDS ORDERED: PROPOFOL 10 MG/ML 20 ML VIAL IV ONE (11:23)
[2020-08-23] MEDS ORDERED: ROCURONIUM 10 MG/ML (10 ML VIAL) IV ONE (11:23)
[2020-08-23] MEDS ORDERED: SUCCINYLCHOLINE CHLORIDE 100 MG/5 ML SYR IV ONE (11:23)
[2020-08-23] MEDS ORDERED: fentaNYL (PF) 50 MCG/ML 2 ML AMP ONE (11:23)
[2020-08-23] MEDS ORDERED: PHENYLEPHRINE 10 MG/ML VIAL ONE (11:23)
[2020-08-23] MEDS ORDERED: GLYCOPYRROLATE 0.2 MG/ML 2 ML VIAL ONE (11:23)
[2020-08-23] MEDS ORDERED: LIDOCAINE 1% INJ 10MG/ML (20 ML MDV) ONE (11:23)
[2020-08-23] MEDS ORDERED: NEOSTIGMINE 1 MG/ML 10 ML VIAL ONE (11:23)
[2020-08-23] MEDS ORDERED: ONDANSETRON 4 MG/2 ML VIAL IVP ONE (11:27)
[2020-08-23] MEDS ORDERED: DEXAMETHASONE SOD PHOSPHATE 4 MG/ML 1 ML VIAL IVP ONE (11:27)
[2020-08-23] MEDS ORDERED: SODIUM CHLORIDE 0.9% 100 ML with ceFAZolin 2,000 MG IV ONE ×2 (11:30)
[2020-08-23] MEDS ORDERED: LACTATED RINGERS 1,000 ML IV ONE ×2 (11:55)
[2020-08-23] MEDS ORDERED: ceFAZolin 1,000 MG in SODIUM CHLORIDE 0.9% 1,000 ML IRRIGATION ONE (12:12)
--- NOTE | 2020-08-23 12:21 | P.OP ---
Date of Procedure: 08/23/20 Procedure(s) Performed: PREOPERATIVE DIAGNOSIS: Left hip intertrochanteric fracture. POSTOPERATIVE DIAGNOSIS: Left hip intertrochanteric fracture. OPERATION: Left hip intertrochanteric fracture closed reduction and intramedullary nailing using [employer]ynthe[employer] IT nail. HEATER MECHANIC: Ly Crawford PA-C (Assistance with: Patient positioning, retraction, exposure, hemostasis, fixation, irrigation, closure, dressing) ANESTHESIA: General ESTIMATED BLOOD LOSS: 50 mL. COMPLICATIONS: None OPERATIVE FINDINGS: See dictation INDICATIONS: Mr. Jernoimo is a 75-year-old male with a history of left intertrochanteric fracture. The patient presents to the operating room today for closed reduction and intramedullary nailing. I discussed the risks of surgery in detail as being inclusive of but not limited to: Bleeding, infection, scarring, discomfort, blood vessel and/or nerve damage, need for further surgery, malunion, nonunion, gait disturbance including persistent or permanent limp, limb length inequality, arthritis, hardware failure, blood clot, pulmonary embolism, , and other risks. The consent form has been signed. PROCEDURE: After appropriate consent was obtained, the patient was taken to the operating room and placed in supine position. [Spinal] anesthetic was administered and after confirmation of adequate anesthesia, the patient was carefully placed in the supine position on the operating room table in the fracture table. The patient was placed up against a well-padded peroneal post. Care was taken to make sure about that all pressure points were adequately padded. The affected leg was placed in boot traction and the unaffected leg was placed in a well leg barrientos. Using gentle longitudinal distraction as well as adduction and internal rotation, the fracture was reduced as assessed by AP and lateral C-arm imaging. Once a satisfactory reduction had been obtained, the thigh was prepped and draped in the usual aseptic fashion using ChloraPrep. Ioban drape was used for the case and the patient received intravenous antibiotics prior to incision. Timeout was called, confirming patient identity, side, procedure, and administration of antibiotics. The incision was then created with a #10 blade just proximal to the greater trochanter laterally. It was carried down through skin into the subcutaneous tissues and through fascia. Hemostasis was obtained using electrocautery. The tip of the greater trochanter was palpated and a guide pin was placed at the tip and directed into the femoral shaft as assessed with C-arm imaging. Once optimal pin position had been obtained, a 17 mm reamer was used over the guide pin to create a path for the IT nail. IT nail selected was assembled to the insertion jig on the back table and bushings were checked for accuracy. The nail was then inserted using gentle mallet taps until it was fully deployed. The amount of rotation of the implant was assessed based on the amount of anteversion of the femoral neck. This was rotated to match the patient's femoral neck anteversion and the helical blade guide was placed through the insertion jig and through an incision on the lateral side of the thigh more distal than the first. Once this guide was placed against the lateral cortex of the femur, a guide pin was drilled into the central region of the femoral head and neck as based on AP and lateral C-arm imaging. Once optimal pin position had been obtained, the guidewire was measured and appropriately sized helical blade was selected. The path for the helical blade was prepared using a tapered reamer. The helical blade was then inserted using gentle mallet taps along the guidewire until it was fully deployed. There was no displacement of the fracture during this step. The anti-rotation screw was locked down and the insertion apparatus for the helical blade was removed. The guide pin was then removed. Traction was then removed from the leg and the distal interlock was placed through the jig using standard technique. Finally, the insertion jig for the nail was removed and final C-arm images were taken and saved in both AP and lateral planes. The final x-rays showed satisfactory positioning of the implant and good reduction of the fracture. The top of the nail was plugged with a small quantity of bone wax and the incisions were then thoroughly irrigated with normal saline. Final hemostasis was obtained using electrocautery and closure of the fascia was performed using 0-Vicryl suture. 2-0 Vicryl suture was used in the subcutaneous tissues and agueda were used for the skin. Sterile dressing was then applied and the patient was carefully removed from the fracture table frame and placed onto the stretcher. The patient tolerated the procedure well. There were no complications and 50 ml of blood loss. The patient was then subsequently transferred to recovery room in stable condition. Sponge and needle counts were correct.
[2020-08-23] MEDS ORDERED: MAGNESIUM HYDROXIDE 2,400 MG/10 ML CUP PO PRN (12:55)
[2020-08-23] MEDS ORDERED: TEMAZEPAM 15 MG CAP PO PRN (12:55)
[2020-08-23] MEDS ORDERED: NALOXONE 0.4 MG/ML 1 ML VIAL IV PRN (12:55)
[2020-08-23] MEDS ORDERED: HYDROmorphone 0.5 MG/0.5 ML SYRINGE IVP PRN ×2 (12:55)
[2020-08-23] MEDS ORDERED: HYDROcodone/APAP 5-325MG 1 EACH TAB PO PRN (12:55)
[2020-08-23] MEDS ORDERED: HYDROmorphone 0.5 MG/0.5 ML SYRINGE IVP ONE (13:05)
[2020-08-23 13:08] LABS: Anisocytosis Slight; Basophils % (A) 0 %; Eosinophils % (A) 0 %; HCT 30.4 % (39.0-53.0); Hypochromasia Moderate; Lymphocytes # (A) 0.8 k/uL (1.0-4.8); Lymphocytes % (A) 10 %; MCH 34.5 pg (25.0-35.0); MCHC 32.6 g/dL (31.0-37.0); MCV 105.7 fL (80.0-100.0); Macrocytosis Moderate; Mean Platelet Volume 8.5; Monocytes # (A) 0.4 k/uL (0-1.0); Monocytes % (A) 5 %; Neutrophils # (A) 7.3 k/uL (1.3-7.7); Neutrophils % (A) 84 %; Platelet Count 122 k/uL (150-450); RBC 2.87 m/uL (4.30-5.90); RDW 16.2 % (11.5-15.5); WBC 8.6 k/uL (3.8-10.6)
--- NOTE | 2020-08-23 13:14 | FL ---
Fluoroscopy INDICATION: Pain FINDINGS: Fluoroscopy time: 18 seconds. Images obtained: 0. IMPRESSIONS: 1. Documentation of fluoroscopy.
[2020-08-23 13:16] LABS: HGB 9.9 gm/dL (13.0-17.5)
--- NOTE | 2020-08-23 13:18 | XR ---
Fluoroscopy INDICATION: Pain FINDINGS: Fluoroscopy time: 18 seconds. Images obtained: 2. IMPRESSIONS: 1. Documentation of fluoroscopy.
--- NOTE | 2020-08-23 13:32 | P.PN ---
Subjective This is a 75-year-old male patient of Dr. Almeida and Dr. Anaya with past medical history of paroxysmal atrial fibrillation on Xarelto only, aortic valve replacement in 2008, abdominal aortic aneurysm status post endovascular stent graft in December 2018, hypertension, gastro-soft reflux disease, psoriasis, tobacco use and dependence, COPD not previously diagnosed. Patient states that he turned lost his balance and fell. He denies any loss of consciousness. He was unable to stand and did not have pain initially. EMS brought him into [facility] emergency center for evaluation patient was found to have acute intertrochanteric left femur fracture. CAT scan of the head and cervical spine revealed cerebral atrophy with chronic small vessel ischemia. No acute intracranial abnormality or fracture the cervical spine. Patient was admitted by orthopedics and scheduled for surgery tomorrow. Cardiology has evaluated for atrial fibrillation. 08/23: Patient evaluated this morning. Echocardiogram done yesterday showed left ventricular hypertrophy, ejection fraction between 50-55%, LA severely dilated, mild regurgitation of the bioprosthetic aortic valve, moderate stenosis of the bioprosthetic aortic valve, mild mitral regurgitation, severe tricuspid regurgitation and pulmonary hypertension. Patient was cleared by cardiology. He underwent closed reduction and intramedullary nailing this morning. Last he moglobin 9.9, platelets 122, vital signs are stable. Objective - Vital Signs Vital signs: Vital Signs Temp 98.6 F 08/23/20 12:50 Pulse 59 L 08/23/20 13:00 Resp 16 08/23/20 13:00 BP 153/65 08/23/20 13:00 Pulse Ox 100 08/23/20 13:00 Intake & Output 08/22/20 08/23/20 08/23/20 18:59 06:59 18:59 Intake Total 951 Output Total 0 700 50 Balance 0 -700 901 Intake: IV 951 Output: Urine 700 0 Stool 0 0 Estimated Blood Loss 50 Other: Voiding Method Indwelling Catheter Indwelling Catheter Indwelling Catheter # Voids 0 0 - Exam Gen: This is a 75-year-old male. He is resting bed appears to be comfortable and in no acute distress. HEENT: Head is atraumatic, normocephalic. Pupils equal, round. Sclerae is anicte [place]. NECK: Supple. No JVD. No lymphadenopathy. No thyromegaly. LUNGS: Clear to auscultation. No wheezes or rhonchi. No intercostal retractions. HEART: Regular rate and rhythm. Systolic ejection murmur. ABDOMEN: Soft. Bowel sounds are present. No masses. No tenderness EXTREMITIES: No pedal edema. No calf tenderness. Dorsalis pedis palpable bilaterally. NEUROLOGICAL: Patient is awake, alert and oriented x3. Cranial nerves 2 through 12 are grossly intact - Labs CBC & Chem 7: 08/23/20 06:29 08/22/20 00:33 Labs: Abnormal Lab Results - Last 24 Hours (Table) 08/23/20 08/23/20 08/23/20 Range/Units 06:29 06:29 09:20 RBC 2.87 L (4.30-5.90) m/uL Hgb 9.9 L D (13.0-17.5) gm/dL Hct 30.4 L (39.0-53.0) % MCV 105.7 H (80.0-100.0) fL RDW 16.2 H (11.5-15.5) % Plt Count 122 L (150-450) k/uL Lymphocytes # 0.8 L (1.0-4.8) k/uL INR 1.2 H (<1.2) Urine Protein Trace H (Negative) Urine Blood Moderate H (Negative) Ur Leukocyte Esterase Large H (Negative) Urine RBC 154 H (0-5) /hpf Urine WBC 63 H (0-5) /hpf Urine Bacteria Occasional H (None) /hpf Urine Mucus Few H (None) /hpf Assessment and Plan Plan: 1. Left intratrochanteric femur fracture. Patient admitted under the care of orthopedics with plan for open reduction internal fixation with intramedullary hip screw, scheduled for today. Continue current pain management, incentive from a tree to reduce incidence of atelectasis and hospital-acquired pneumonia. Xarelto is on hold 2. Paroxysmal atrial fibrillation. Cardiology consult appreciated. Xarelto is on hold. 3. History of aortic valve replacement, stable. 4. Abdominal aortic aneurysm status post Endovascular stent graft in December 2018. 5. Hypertension, not currently on medication. 6. Gastroesophageal reflux disease. Protonix daily. 7. Psoriasis, stable. 8. Tobacco use and dependence. Smoking cessation. 9. COPD. DuoNeb treatments scheduled 3 times daily and 4 times daily as needed. 10. DVT prophylaxis. Patient will be resumed on Xarelto following surgery. Patient will be admitted to the hospital for a minimum of 2 night stay. The above impression and plan of care have been discussed and directed by signing physician. Jeannie Stover nurse practitioner acting as scribe for signing physician.
[2020-08-23] MEDS: NICOTINE 14MG/24HR PATCH TRANSDERM SCH (16:43)
[2020-08-23] MEDS: LACTATED RINGERS 1,000 ML IV SCH (16:43)
[2020-08-23] MEDS: SODIUM CHLORIDE 0.9% 1,000 ML IV SCH (16:44)
[2020-08-24] MEDS: SODIUM CHLORIDE 0.9% 1,000 ML IV SCH (04:20)
[2020-08-24 06:18] LABS: Anisocytosis Slight; Basophils % (A) 0 %; Eosinophils # (A) 0.1 k/uL (0-0.7); Eosinophils % (A) 1 %; HCT 25.3 % (39.0-53.0); Hypochromasia Slight; Lymphocytes % (A) 12 %; MCH 33.5 pg (25.0-35.0); MCHC 32.5 g/dL (31.0-37.0); MCV 102.9 fL (80.0-100.0); Macrocytosis Moderate; Mean Platelet Volume 8.5; Monocytes # (A) 0.5 k/uL (0-1.0); Monocytes % (A) 6 %; Neutrophils # (A) 6.6 k/uL (1.3-7.7); Neutrophils % (A) 80 %; Platelet Count 102 k/uL (150-450); RBC 2.46 m/uL (4.30-5.90); RDW 16.1 % (11.5-15.5); WBC 8.3 k/uL (3.8-10.6)
[2020-08-24 06:25] LABS: HGB 8.2 gm/dL (13.0-17.5)
[2020-08-24] MEDS: IPRATROPIUM-ALBUTEROL 3 ML NEB INHALATION SCH ×3 (07:38→20:46)
[2020-08-24] MEDS: PANTOPRAZOLE 40 MG TABLET PO SCH (08:33)
[2020-08-24] MEDS: HYDROcodone/APAP 5-325MG 1 EACH TAB PO PRN ×2 (08:33→16:25)
[2020-08-24] MEDS: NICOTINE 14MG/24HR PATCH TRANSDERM SCH (08:36)
--- NOTE | 2020-08-24 10:26 | P.PN ---
Subjective Progress Note Date: 08/24/20 Principal diagnosis: Left hip fracture. Status post IT nail left hip. This is a 75-year-old man who is status post close reduction with insertion of intertrochanteric nail on 08/23/2020. He has no new complaints or concerns today. Vital signs are stable. Urine culture is pending. Objective - Vital Signs Vital signs: Vital Signs Temp 97.7 F 08/24/20 02:26 Pulse 65 08/24/20 07:50 Resp 16 08/24/20 02:26 BP 120/71 08/24/20 02:26 Pulse Ox 94 L 08/24/20 02:26 Intake & Output 08/23/20 08/24/20 08/24/20 18:59 06:59 18:59 Intake Total 1251 Output Total 350 300 Balance 901 -300 Weight 68.039 kg Intake: IV 1201 Oral 50 Output: Urine 300 300 Stool 0 Estimated Blood Loss 50 Other: Voiding Method Indwelling Catheter # Voids 0 - Exam This is a pleasant 75-year-old male in no acute distress. He is alert and oriented at this time. Exam of the left lower extremity reveals that his dressing is clean, dry and intact. There is no drainage. He has full foot and ankle motion without difficulty or pain. Neurovascular status to the lower extremity is intact. - Labs CBC & Chem 7: 08/24/20 05:56 08/22/20 00:33 Labs: Abnormal Lab Results - Last 24 Hours (Table) 08/23/20 08/24/20 Range/Units 06:29 05:56 RBC 2.87 L 2.46 L (4.30-5.90) m/uL Hgb 9.9 L D 8.2 L D (13.0-17.5) gm/dL Hct 30.4 L 25.3 L (39.0-53.0) % MCV 105.7 H 102.9 H (80.0-100.0) fL RDW 16.2 H 16.1 H (11.5-15.5) % Plt Count 122 L 102 L (150-450) k/uL Lymphocytes # 0.8 L (1.0-4.8) k/uL Microbiology - Last 24 Hours (Table) 08/23/20 09:20 Urine Culture - Preliminary Urine,Catheterized Assessment and Plan (1) Closed left hip fracture Current Visit: Yes Status: Acute Code(s): S72.002A - FRACTURE OF UNSP PART OF NECK OF LEFT FEMUR, INIT SNOMED Code(s): 729274433 (2) A-fib Current Visit: No Status: Acute Code(s): I48.91 - UNSPECIFIED ATRIAL FIBRILLATION SNOMED Code(s): 53194965 Plan: The clinical findings are discussed with the patient. He will begin with physical therapy today. He is toe-touch weightbearing to the left lower extremity. Plan is for discharge to inpatient rehab Wednesday if cleared medically.
[2020-08-24 10:55] LABS: African American GFR (CKD) 105.5 (60.0-200.0); Albumin 2.6 g/dL (3.80-4.90); Albumin/Globulin Ratio 1.53 (1.60-3.17); Anion Gap 1.3 mmol/L (4.00-12.00); BUN/Creat Ratio 31.43 Ratio (12.00-20.00); Calcium 7.4 mg/dL (8.7-10.3); Carbon Dioxide 25.7 mmol/L (21.6-31.8); Globulin 1.7 g/dL (1.6-3.3); Potassium 4.4 mmol/L (3.5-5.5); Total Bilirubin 1.2 mg/dL (0.2-1.2); Total Protein 4.3 g/dL (6.2-8.2)
--- NOTE | 2020-08-24 11:45 | P.PN ---
Subjective Progress Note Date: 08/24/20 The patient is a 75-year-old male with past medical history of complete heart block status post permanent pacemaker, valvular heart disease status post aVR, history of endovascular stent graft, hypertension, COPD, and paroxysmal atrial fibrillation, who presented to the hospital after experiencing a fall. He subsequently underwent closed reduction with insertion of intertrochanteric nail for left hip fracture. The patient was interviewed and examined this morning resting comfortably in bed. He denies any pain at this time. He states he is comfortable and is not experiencing any shortness of breath. No chest pain or chest pressure. No palpitations, dizziness, or lightheadedness. Laboratory data: WBC 8.3, hemoglobin 8.2, platelet 102, sodium 136, potassium 4.4, BUN 22, creatinine 0.7, AST 18, ALT 11, urine culture pending for positive UA GENERAL: Well-appearing, well-nourished and in no acute distress. NECK: Supple without JVD or thyromegaly. LUNGS: Breath sounds are rhonchorous on the right and diminished on the left. Respiration equal and unlabored. No wheezes, rales or rhonchi. HEART: Regular rate and rhythm without rubs or gallops. Systolic murmur audible. S1 and S2 heard. EXTREMITIES: Limited range of motion status post orthopedic surgery. +2 pitting edema on the right. No clubbing or cyanosis. Peripheral pulses intact. Assessment: Status post fall, left hip fracture, status post closed reduction with insertion of intertrochanteric nail placement Paroxysmal atrial fibrillation, Xarelto currently on hold, resume promptly per surgery team Anemia, hemoglobin 8.2 Urinary tract infection, culture pending Hypertension Current smoker Plan: Resume Xarelto approximately as recommended by surgical team. KVO fluids as he has rhonchorous breath sounds as well as mild lower extremity edema. Encourage oral hydration and incentive spirometry. Continue all other cardiac medications at this time. No additional recommendations from the cardiac standpoint at this time. We'll continue follow on an as-needed basis. The patient has been seen and evaluated. Plan of care has been reviewed and agreed upon by Dr Shepherd. Objective - Vital Signs Vital signs: Vital Signs Temp 98.7 F 08/24/20 08:00 Pulse 60 08/24/20 08:00 Resp 16 08/24/20 08:00 BP 120/69 08/24/20 08:00 Pulse Ox 92 L 08/24/20 08:00 Intake & Output 08/23/20 08/24/20 08/24/20 18:59 06:59 18:59 Intake Total 1251 Output Total 350 300 Balance 901 -300 Weight 68.039 kg Intake: IV 1201 Oral 50 Output: Urine 300 300 Stool 0 Estimated Blood Loss 50 Other: Voiding Method Indwelling Catheter Indwelling Catheter # Voids 0 - Labs CBC & Chem 7: 08/24/20 05:56 08/24/20 05:56 Labs: Abnormal Lab Results - Last 24 Hours (Table) 08/23/20 08/24/20 08/24/20 Range/Units 06:29 05:56 05:56 RBC 2.87 L 2.46 L (4.30-5.90) m/uL Hgb 9.9 L D 8.2 L D (13.0-17.5) gm/dL Hct 30.4 L 25.3 L (39.0-53.0) % MCV 105.7 H 102.9 H (80.0-100.0) fL RDW 16.2 H 16.1 H (11.5-15.5) % Plt Count 122 L 102 L (150-450) k/uL Lymphocytes # 0.8 L (1.0-4.8) k/uL Anion Gap 1.30 L (4.00-12.00) mmol/L BUN/Creatinine Ratio 31.43 H (12.00-20.00) Ratio Calcium 7.4 L (8.7-10.3) mg/dL Total Protein 4.3 L (6.2-8.2) g/dL Albumin 2.60 L (3.80-4.90) g/dL Albumin/Globulin Ratio 1.53 L (1.60-3.17) g/dL Microbiology - Last 24 Hours (Table) 08/23/20 09:20 Urine Culture - Preliminary Urine,Catheterized
[2020-08-24] MEDS: SENNOSIDES-DOCUSATE SODIUM 1 EACH TAB PO SCH (21:30)
[2020-08-25] MEDS: LACTATED RINGERS 1,000 ML IV SCH ×3 (09:24→16:08)
[2020-08-25] MEDS: PANTOPRAZOLE 40 MG TABLET PO SCH (09:26)
[2020-08-25] MEDS: NICOTINE 14MG/24HR PATCH TRANSDERM SCH (09:27)
--- NOTE | 2020-08-25 10:00 | P.PN ---
Subjective Progress Note Date: 08/25/20 Principal diagnosis: Left hip fracture. Status post IT nail left hip. This is a 75-year-old man who is status post closed reduction with insertion of intertrochanteric nail on 08/23/2020. He has no new complaints or concerns today. Vital signs are stable. Hemoglobin is 8.2. Urine culture is pending. Objective - Vital Signs Vital signs: Vital Signs Temp 98.2 F 08/25/20 03:16 Pulse 69 08/25/20 03:16 Resp 16 08/25/20 03:16 BP 120/72 08/25/20 03:16 Pulse Ox 93 L 08/25/20 03:16 Intake & Output 08/24/20 08/25/20 08/25/20 18:59 06:59 18:59 Output Total 400 300 Balance -400 -300 Output: Urine 400 300 Other: Voiding Method Indwelling Catheter - Exam This is a pleasant 75-year-old male in no acute distress. He is alert and oriented at this time. Exam of the left lower extremity reveals that his dressing is clean, dry and intact. There is no drainage. He has full foot and ankle motion without difficulty or pain. Neurovascular status to the lower extremity is intact. - Labs CBC & Chem 7: 08/24/20 05:56 08/24/20 05:56 Labs: Abnormal Lab Results - Last 24 Hours (Table) 08/24/20 Range/Units 05:56 Anion Gap 1.30 L (4.00-12.00) mmol/L BUN/Creatinine Ratio 31.43 H (12.00-20.00) Ratio Calcium 7.4 L (8.7-10.3) mg/dL Total Protein 4.3 L (6.2-8.2) g/dL Albumin 2.60 L (3.80-4.90) g/dL Albumin/Globulin Ratio 1.53 L (1.60-3.17) g/dL Microbiology - Last 24 Hours (Table) 08/23/20 09:20 Urine Culture - Final Urine,Catheterized Assessment and Plan (1) Closed left hip fracture Current Visit: Yes Status: Acute Code(s): S72.002A - FRACTURE OF UNSP PART OF NECK OF LEFT FEMUR, INIT SNOMED Code(s): 495331570 (2) A-fib Current Visit: No Status: Acute Code(s): I48.91 - UNSPECIFIED ATRIAL FIBRILLATION SNOMED Code(s): 97124171 Plan: The clinical findings are discussed with the patient. He will continue continue physical therapy today. He is toe-touch weightbearing to the left lower extremity. Plan is for discharge to inpatient rehab Wednesday if cleared medically.
[2020-08-25] MEDS: IPRATROPIUM-ALBUTEROL 3 ML NEB INHALATION SCH ×3 (10:54→20:43)
--- NOTE | 2020-08-25 12:26 | P.PN ---
Subjective Progress Note Date: 08/24/20 This is a 75-year-old male patient of Dr. Almeida and Dr. Anaya with past medical history of paroxysmal atrial fibrillation on Xarelto only, aortic valve replacement in 2008, abdominal aortic aneurysm status post endovascular stent graft in December 2018, hypertension, gastro-soft reflux disease, psoriasis, tobacco use and dependence, COPD not previously diagnosed. Patient states that he turned lost his balance and fell. He denies any loss of consciousness. He was unable to stand and did not have pain initially. EMS brought him into [facility] emergency center for evaluation patient was found to have acute intertrochanteric left femur fracture. CAT scan of the head and cervical spine revealed cerebral atrophy with chronic small vessel ischemia. No acute intracranial abnormality or fracture the cervical spine. Patient was admitted by orthopedics and scheduled for surgery tomorrow. Cardiology has evaluated for atrial fibrillation. 08/23: Patient evaluated this morning. Echocardiogram done yesterday showed left ventricular hypertrophy, ejection fraction between 50-55%, LA severely dilated, mild regurgitation of the bioprosthetic aortic valve, moderate stenosis of the bioprosthetic aortic valve, mild mitral regurgitation, severe tricuspid regurgitation and pulmonary hypertension. Patient was cleared by cardiology. He underwent closed reduction and intramedullary nailing this morning. Last hemoglobin 9.9, platelets 122, vital signs are stable. 08/24, patient had surgery yesterday, no perioperative complication, post op pain controlled, hemoglobin 8.0. vitals stable cratinin 0.7 will check for ironstdueis transuse blood if under 8. no nausea no palpitation no chest pain, no dizziness, on opiate for pain control urine culture final no growth Objective - Vital Signs Vital signs: Vital Signs Temp 98.0 F 08/25/20 08:25 Pulse 59 L 08/25/20 08:25 Resp 18 08/25/20 08:25 BP 115/66 08/25/20 08:25 Pulse Ox 91 L 08/25/20 08:25 Intake & Output 08/24/20 08/25/20 08/25/20 18:59 06:59 18:59 Output Total 400 300 300 Balance -400 -300 -300 Output: Urine 400 300 300 Other: Voiding Method Indwelling Catheter Indwelling Catheter - Constitutional General appearance: Present: cooperative, no acute distress - EENT Eyes: Present: EOMI, PERRLA - Respiratory Respiratory: bilateral: CTA, negative: diminished, dullness - Cardiovascular Rhythm: regular Heart sounds: normal: S1 Abnormal Heart Sounds: Absent: systolic murmur, diastolic murmur, rub, S3 Gallop, S4 Gallop, click, other - Gastrointestinal General gastrointestinal: Present: normal bowel sounds, soft - Integumentary Integumentary: Present: decreased turgor, normal - Neurologic Neurologic: Present: CNII-XII intact - Psychiatric Psychiatric: Present: A&O x's 3, appropriate affect, intact judgment & insight - Labs CBC & Chem 7: 08/24/20 05:56 08/24/20 05:56 Labs: Microbiology - Last 24 Hours (Table) 08/23/20 09:20 Urine Culture - Final Urine,Catheterized Assessment and Plan Plan: 1. Left intratrochanteric femur fracture. Patient admitted under the care of orthopedics with plan for open reduction internal fixation with intramedullary hip screw, scheduled 08/23 POD # 1. Continue current pain management, incentive from a tree to reduce incidence of atelectasis and hospital-acquired pneumonia. Xarelto is on hold 2. Paroxysmal atrial fibrillation. Cardiology consult appreciated. Xarelto is on hold will resume in am 3. History of aortic valve replacement, stable. 4. Abdominal aortic aneurysm status post Endovascular stent graft in December 2018. 5. Hypertension, not currently on medication. 6. Gastroesophageal reflux disease. Protonix daily. 7. Psoriasis, stable. 8. Tobacco use and dependence. Smoking cessation. 9. COPD. DuoNeb treatments scheduled 3 times daily and 4 times daily as needed. 10. DVT prophylaxis. Patient will be resumed on Xarelto following surgery. Patient will be admitted to the hospital for a minimum of 2 night stay.
[2020-08-25 12:50] LABS: Anisocytosis Slight; Basophils % (A) 1 %; Eosinophils # (A) 0.2 k/uL (0-0.7); Eosinophils % (A) 3 %; HCT 26.4 % (39.0-53.0); HGB 8.8 gm/dL (13.0-17.5); Hypochromasia Slight; Lymphocytes # (A) 0.7 k/uL (1.0-4.8); Lymphocytes % (A) 9 %; MCH 34.5 pg (25.0-35.0); MCHC 33.2 g/dL (31.0-37.0); MCV 104.1 fL (80.0-100.0); Macrocytosis Moderate; Mean Platelet Volume 7.7; Monocytes # (A) 0.4 k/uL (0-1.0); Monocytes % (A) 5 %; Neutrophils # (A) 6.5 k/uL (1.3-7.7); Neutrophils % (A) 82 %; Platelet Count 121 k/uL (150-450); Poikilocytosis Slight; RBC 2.54 m/uL (4.30-5.90); RDW 16.3 % (11.5-15.5); WBC 7.9 k/uL (3.8-10.6)
[2020-08-25] MEDS ORDERED: FUROSEMIDE 10 MG/ML 2 ML VIAL IV STA (13:14)
[2020-08-25] MEDS: SODIUM FERRIC GLUCONAT-SUCROSE 125 MG in SODIUM CHLORIDE 0.9% 100 ML IVPB SCH (13:58)
--- NOTE | 2020-08-25 14:56 | P.PN ---
Subjective Progress Note Date: 08/25/20 This is a 75-year-old male patient of Dr. Almeida and Dr. Anaya with past medical history of paroxysmal atrial fibrillation on Xarelto only, aortic valve replacement in 2008, abdominal aortic aneurysm status post endovascular stent graft in December 2018, hypertension, gastro-soft reflux disease, psoriasis, tobacco use and dependence, COPD not previously diagnosed. Patient states that he turned lost his balance and fell. He denies any loss of consciousness. He was unable to stand and did not have pain initially. EMS brought him into [facility] emergency center for evaluation patient was found to have acute intertrochanteric left femur fracture. CAT scan of the head and cervical spine revealed cerebral atrophy with chronic small vessel ischemia. No acute intracranial abnormality or fracture the cervical spine. Patient was admitted by orthopedics and scheduled for surgery tomorrow. Cardiology has evaluated for atrial fibrillation. 08/23: Patient evaluated this morning. Echocardiogram done yesterday showed left ventricular hypertrophy, ejection fraction between 50-55%, LA severely dilated, mild regurgitation of the bioprosthetic aortic valve, moderate stenosis of the bioprosthetic aortic valve, mild mitral regurgitation, severe tricuspid regurgitation and pulmonary hypertension. Patient was cleared by cardiology. He underwent closed reduction and intramedullary nailing this morning. Last hemoglobin 9.9, platelets 122, vital signs are stable. 08/24, patient had surgery yesterday, no perioperative complication, post op pain controlled, hemoglobin 8.0. vitals stable cratinin 0.7 will check for ironstdueis transuse blood if under 8. no nausea no palpitation no chest pain, no dizziness, on opiate for pain control urine culture final no growth 08/25, patient is feeling okay, no cough no fever, there is new with dependent edema noted today, also new scrotal edema, penile swelling, patient has Ruggiero catheter taken out today, we will monitor PVR, Flomax initiated, Lasix initiated at 14 820 mg daily, with 40 mg IV 1 dose. Xarelto will be resumed however at a lower dose of 15 mg starting tomorrow August 26. Iron infusion 2 doses start ing today, no lightheadedness no dizziness today, patient is participating with physical therapy, incentive spirometry is advocated for compliance, discharge planning in progress, most likely be discharged in next 24 hours, subacute Objective - Vital Signs Vital signs: Vital Signs Temp 98.0 F 08/25/20 08:25 Pulse 69 08/25/20 13:06 Resp 18 08/25/20 08:25 BP 115/66 08/25/20 08:25 Pulse Ox 91 L 08/25/20 08:25 Intake & Output 08/24/20 08/25/20 08/25/20 18:59 06:59 18:59 Output Total 400 300 300 Balance -400 -300 -300 Output: Urine 400 300 300 Other: Voiding Method Indwelling Catheter Indwelling Catheter - Constitutional General appearance: Present: cooperative, no acute distress, thin - EENT Eyes: Present: anicteric sclerae, dentition normal ENT: Present: NA/AT - Respiratory Respiratory: bilateral: CTA, negative: diminished, dullness - Cardiovascular Rhythm: regular Heart sounds: normal: S1, S2 Abnormal Heart Sounds: Absent: systolic murmur, diastolic murmur, rub, S3 Gallop, S4 Gallop, click, other - Peripheral edema leg Peripheral Edema: bilateral: 2+ - Gastrointestinal General gastrointestinal: Present: normal bowel sounds, soft - Integumentary Integumentary: Present: normal - Neurologic Neurologic: Present: CNII-XII intact - Musculoskeletal Musculoskeletal: Present: generalized weakness, strength equal bilaterally - Psychiatric Psychiatric: Present: A&O x's 3, appropriate affect - Labs CBC & Chem 7: 08/25/20 12:38 08/24/20 05:56 Labs: Abnormal Lab Results - Last 24 Hours (Table) 08/25/20 Range/Units 12:38 RBC 2.54 L (4.30-5.90) m/uL Hgb 8.8 L (13.0-17.5) gm/dL Hct 26.4 L (39.0-53.0) % MCV 104.1 H (80.0-100.0) fL RDW 16.3 H (11.5-15.5) % Plt Count 121 L (150-450) k/uL Lymphocytes # 0.7 L (1.0-4.8) k/uL Microbiology - Last 24 Hours (Table) 08/23/20 09:20 Urine Culture - Final Urine,Catheterized Assessment and Plan Plan: 1. Left intratrochanteric femur fracture. Patient admitted under the care of orthopedics with plan for open reduction internal fixation with intramedullary hip screw, scheduled 08/23 POD # 1. Continue current pain management, incentive from a tree to reduce incidence of atelectasis and hospital-acquired pneumonia. Xarelto is on hold 2. Anasarca mainly below the hips, bilateral, start Lasix 401 dose IV, with maintenance 20 mg daily. Edema is improved. Proteins for nutrition, 3. penile edema, and scrotal edema, elevation, and Lasix as directed above 2. Paroxysmal atrial fibrillation. Cardiology consult appreciated. Xarelto is on hold will resume in am at 15 mg starting August 26 3. History of aortic valve replacement, stable. 4. Abdominal aortic aneurysm status post Endovascular stent graft in December 2018. 5. Hypertension, not currently on medication. 6. Gastroesophageal reflux disease. Protonix daily. 7. Psoriasis, stable. 8. Tobacco use and dependence. Smoking cessation. 9. COPD. DuoNeb treatments scheduled 3 times daily and 4 times daily as needed. 10. DVT prophylaxis. Patient will be resumed on Xarelto following surgery. 7. Hematuria most likes Guilherme secondary to traumatic Ruggiero, monitor for hemoglobin, Ruggiero catheter was discontinued August 25, Xarelto will be resume at lower dose starting August 26, fifth 14 mg Patient will be admitted to the hospital for a minimum of 2 night stay.
[2020-08-25] MEDS ORDERED: RIVAROXABAN 15 MG TAB PO STA (17:06)
[2020-08-25 17:23] LABS: % Iron Saturation 8.87 (15.00-50.00)
[2020-08-25] MEDS ORDERED: TAMSULOSIN 0.4 MG CAP.ER.24H PO SCH (18:30)
[2020-08-25] MEDS ORDERED: RIVAROXABAN 15 MG TAB PO SCH (18:30)
[2020-08-25] MEDS: SENNOSIDES-DOCUSATE SODIUM 1 EACH TAB PO SCH (20:36)
[2020-08-25 22:23] VITALS: PULSE 60
[2020-08-26] MEDS: SENNOSIDES-DOCUSATE SODIUM 1 EACH TAB PO SCH ×2 (03:50→10:59)
[2020-08-26] MEDS: HYDROmorphone 0.5 MG/0.5 ML SYRINGE IVP PRN (07:07)
[2020-08-26] MEDS: IPRATROPIUM-ALBUTEROL 3 ML NEB INHALATION SCH ×2 (07:39→11:28)
[2020-08-26 07:56] LABS: Anisocytosis Slight; Basophils % (A) 0 %; Eosinophils # (A) 0.1 k/uL (0-0.7); Eosinophils % (A) 2 %; HCT 27.3 % (39.0-53.0); Hypochromasia Slight; Lymphocytes # (A) 0.5 k/uL (1.0-4.8); Lymphocytes % (A) 8 %; MCH 34.5 pg (25.0-35.0); MCHC 33.1 g/dL (31.0-37.0); MCV 104.2 fL (80.0-100.0); Macrocytosis Moderate; Mean Platelet Volume 8.1; Monocytes # (A) 0.4 k/uL (0-1.0); Monocytes % (A) 5 %; Neutrophils # (A) 5.5 k/uL (1.3-7.7); Neutrophils % (A) 83 %; Platelet Count 118 k/uL (150-450); Poikilocytosis Slight; RBC 2.62 m/uL (4.30-5.90); RDW 16.6 % (11.5-15.5); WBC 6.6 k/uL (3.8-10.6)
--- NOTE | 2020-08-26 08:23 | P.DS ---
Providers Date of admission: 08/22/20 01:03 Expected date of discharge: 08/26/20 Attending physician: Nasir Lerma Consults: 08/22/20 01:18 Consult Physician Routine Consulting Provider: Kirti Gaffney Consult Reason/Comments: Medical management Do you want consulting provider notified?: Yes 08/22/20 08:28 Consult Physician Routine Consulting Provider: Huey Anaya Consult Reason/Comments: afib Do you want consulting provider notified?: Yes Primary care physician: Tito Almeida - Discharge Diagnosis(es) (1) Closed left hip fracture Current Visit: Yes Status: Acute (2) A-fib Current Visit: No Status: Acute Hospital Course: This is a 75-year-old male who is admitted to [facility] on 08/21/2020 after falling and sustaining injury to the left hip. On exam and x- ray in the emergency department he is found to have an intertrochanteric fracture of the left hip. He is admitted to our service for surgical intervention and care. Patient is taken to surgery on 08/23/2020 for close reduction and insertion of intertrochanteric nail of the left hip. The procedure was performed without complication or sequelae. The patient is doing fairly well postoperatively. Vital signs and labs are stable on postoperative day #3. Patient is discharged to inpatient rehab in good condition. Please see med rec for accurate list of discharge medications. Patient Condition at Discharge: Serious Plan - Discharge Summary New Discharge Prescriptions: New HYDROcodone/APAP 5-325MG [[place] 5-325] 1 - 2 tab PO Q6HR PRN #48 tab PRN Reason: Pain Sennosides-Docusate Sodium [Senokot-S] 1 tab PO BID #60 tablet Ipratropium-Albuterol Nebulize [Duoneb 0.5 mg-3 mg/3 ml Soln] 3 ml INHALATION RT-QID PRN ml PRN Reason: Shortness Of Breath Or Wheezing Tamsulosin [Flomax] 0.4 mg PO PC-SUPPER #30 cap.er.24h Nicotine 14Mg/24Hr Patch [Habitrol] 1 patch TRANSDERM DAILY #14 patch Furosemide [Lasix] 20 mg PO DAILY tab Magnesium Hydroxide [Milk of Magnesia Concentrate] 2,400 mg PO DAILY PRN ml PRN Reason: Constipation Pantoprazole [Protonix] 40 mg PO AC-BRKFST tablet.dr [place]-Docusate Sodium [Senokot-S] 2 each PO HS tab Continue Rivaroxaban [Xarelto] 20 mg PO PC-SUPPER Discharge Medication List Rivaroxaban [Xarelto] 20 mg PO PC-SUPPER 08/22/20 [History] HYDROcodone/APAP 5-325MG [[place] 5-325] 1 - 2 tab PO Q6HR PRN #48 tab 08/25/20 [Rx] Sennosides-Docusate Sodium [Senokot-S] 1 tab PO BID #60 tablet 08/25/20 [Rx] Furosemide [Lasix] 20 mg PO DAILY tab 08/26/20 [Rx] Ipratropium-Albuterol Nebulize [Duoneb 0.5 mg-3 mg/3 ml Soln] 3 ml INHALATION RT-QID PRN ml 08/26/20 [Rx] Magnesium Hydroxide [Milk of Magnesia Concentrate] 2,400 mg PO DAILY PRN ml 08/26/20 [Rx] Nicotine 14Mg/24Hr Patch [Habitrol] 1 patch TRANSDERM DAILY #14 patch 08/26/20 [Rx] Pantoprazole [Protonix] 40 mg PO AC-BRKFST tablet. 08/26/20 [Rx] Sennosides-Docusate Sodium [Senokot-S] 2 each PO HS tab 08/26/20 [Rx] Tamsulosin [Flomax] 0.4 mg PO PC-SUPPER #30 cap.er.24h 08/26/20 [Rx] Follow up Appointment(s)/Referral(s): Ly Crawford PAC [PHYSIC[facility]] - 3 Weeks Tito Almeida DO [Primary Care Provider] - 1-2 days Activity/Diet/Wound Care/Special Instructions: Toe-touch weightbearing to the left lower extremity with walker. May shower if no drainage from incisions. Discharge Disposition: TRANSFER TO SNF/ECF
[2020-08-26] MEDS: NICOTINE 14MG/24HR PATCH TRANSDERM SCH (08:40)
[2020-08-26] MEDS: PANTOPRAZOLE 40 MG TABLET PO SCH (08:40)
[2020-08-26] MEDS ORDERED: FUROSEMIDE 20 MG TAB PO SCH (09:00)
[2020-08-26] MEDS ORDERED: RIVAROXABAN 15 MG TAB PO SCH (09:00)
[2020-08-26 09:38] VITALS: BP 155/69; RESP 17; TEMP 97.7
[2020-08-26] MEDS: SODIUM FERRIC GLUCONAT-SUCROSE 125 MG in SODIUM CHLORIDE 0.9% 100 ML IVPB SCH (11:14)
[2020-08-26 11:48] LABS: African American GFR (CKD) 99.9 (60.0-200.0); Anion Gap 5.5 mmol/L (4.00-12.00); BUN/Creat Ratio 28.75 Ratio (12.00-20.00); Calcium 7.6 mg/dL (8.7-10.3); Carbon Dioxide 22.5 mmol/L (21.6-31.8); Non-African American GFR(CKD) 86.2 (60.0-200.0); Potassium 4.1 mmol/L (3.5-5.5)
--- NOTE | 2020-08-26 13:30 | P.PN ---
Subjective This is a 75-year-old male patient of Dr. Almeida and Dr. Anaya with past medical history of paroxysmal atrial fibrillation on Xarelto only, aortic valve replacement in 2008, abdominal aortic aneurysm status post endovascular stent graft in December 2018, hypertension, gastro-soft reflux disease, psoriasis, tobacco use and dependence, COPD not previously diagnosed. Patient states that he turned lost his balance and fell. He denies any loss of consciousness. He was unable to stand and did not have pain initially. EMS brought him into [facility] emergency center for evaluation patient was found to have acute intertrochanteric left femur fracture. CAT scan of the head and cervical spine revealed cerebral atrophy with chronic small vessel ischemia. No acute intracranial abnormality or fracture the cervical spine. Patient was admitted by orthopedics and scheduled for surgery tomorrow. Cardiology has evaluated for atrial fibrillation. 08/23: Patient evaluated this morning. Echocardiogram done yesterday showed left ventricular hypertrophy, ejection fraction between 50-55%, LA severely dilated, mild regurgitation of the bioprosthetic aortic valve, moderate stenosis of the bioprosthetic aortic valve, mild mitral regurgitation, severe tricuspid regurgitation and pulmonary hypertension. Patient was cleared by cardiology. He underwent closed reduction and intramedullary nailing this morning. Last he moglobin 9.9, platelets 122, vital signs are stable. 08/24, patient had surgery yesterday, no perioperative complication, post op pain controlled, hemoglobin 8.0. vitals stable cratinin 0.7 will check for ironstdueis transuse blood if under 8. no nausea no palpitation no chest pain, no dizziness, on opiate for pain control urine culture final no growth 08/25, patient is feeling okay, no cough no fever, there is new with dependent edema noted today, also new scrotal edema, penile swelling, patient has Ruggiero catheter taken out today, we will monitor PVR, Flomax initiated, Lasix initiated at 14 820 mg daily, with 40 mg IV 1 dose. Xarelto will be resumed however at a lower dose of 15 mg starting tomorrow August 26. Iron infusion 2 doses starting today, no lightheadedness no dizziness today, patient is participating with physical therapy, incentive spirometry is advocated for compliance, discharge planning in progress, most likely be discharged in next 24 hours, subacute 08/26: Patient evaluated today. He is doing well, pain is well controlled. Hemoglobin 9.0, sodium 131, BUN 28, creatinine 0.8. Vital signs are stable he's afebrile 97.7, heart rate is 60, respiratory 17, 155/69 he is 99% on room air. Patient had a Ruggiero catheter discontinued yesterday and did require straight cath for bladder scan of over 200 mls. He'll continue on Flomax. Encouraged to use the incentive spirometer, will be discharged to subacute rehab today. Objective - Vital Signs Vital signs: Vital Signs Temp 97.7 F 08/26/20 08:23 Pulse 60 08/26/20 08:23 Resp 17 08/26/20 08:23 BP 155/69 08/26/20 08:23 Pulse Ox 99 08/26/20 08:23 Intake & Output 08/25/20 08/26/20 08/26/20 18:59 06:59 18:59 Intake Total 320 Output Total 300 210 Balance 20 -210 Intake: Oral 320 Output: Urine 300 210 Stool 0 Other: Voiding Method Indwelling Catheter Indwelling Catheter # Voids 0 - Exam Gen: This is a 75-year-old male. He is resting bed appears to be comfortable and in no acute distress. HEENT: Head is atraumatic, normocephalic. Pupils equal, round. NECK: Supple. No JVD. No lymphadenopathy. No thyromegaly. LUNGS: Clear to auscultation. No wheezes or rhonchi. No intercostal retractions. HEART: Regular rate and rhythm. Systolic ejection murmur. ABDOMEN: Soft. Bowel sounds are present. No masses. No tenderness EXTREMITIES: No pedal edema. No calf tenderness. Dorsalis pedis palpable bilaterally. NEUROLOGICAL: Patient is awake, alert and oriented x3. Cranial nerves 2 through 12 are grossly intact - Labs CBC & Chem 7: 08/26/20 07:32 08/26/20 07:32 Labs: Abnormal Lab Results - Last 24 Hours (Table) 08/25/20 08/26/20 08/26/20 Range/Units 12:38 07:32 07:32 RBC 2.62 L (4.30-5.90) m/uL Hgb 9.0 L (13.0-17.5) gm/dL Hct 27.3 L (39.0-53.0) % MCV 104.2 H (80.0-100.0) fL RDW 16.6 H (11.5-15.5) % Plt Count 118 L (150-450) k/uL Lymphocytes # 0.5 L (1.0-4.8) k/uL Sodium 131 L (135-145) mmol/L BUN/Creatinine Ratio 28.75 H (12.00-20.00) Ratio Calcium 7.6 L (8.7-10.3) mg/dL Iron 22 L (65-175) ug/dL % Saturation 8.87 L (15.00-50.00) Assessment and Plan Plan: 1. Left intratrochanteric femur fracture. Patient admitted under the care of orthopedics s/p open reduction internal fixation with intramedullary hip screw, Continue current pain management, incentive from a tree to reduce incidence of atelectasis and hospital-acquired pneumonia. 2. Anasarca mainly below the hips, bilateral, start Lasix 401 dose IV, with maintenance 20 mg daily. Edema is improved. Proteins for nutrition 3. penile edema, and scrotal edema, elevation, and Lasix as directed above 2. Paroxysmal atrial fibrillation. Cardiology consult appreciated. 3. History of aortic valve replacement, stable. 4. Abdominal aortic aneurysm status post Endovascular stent graft in December 2018. 5. Hypertension, not currently on medication. 6. Gastroesophageal reflux disease. Protonix daily. 7. Psoriasis, stable. 8. Tobacco use and dependence. Smoking cessation. 9. COPD. DuoNeb treatments scheduled 3 times daily and 4 times daily as needed. 10. DVT prophylaxis. Patient will be resumed on Xarelto following surgery. 7. Hematuria most likes Guilherme secondary to traumatic Ruggiero, Ruggiero catheter was discontinued August 25 The above impression and plan of care have been discussed and directed by signing physician. Jeannie Stover nurse practitioner acting as scribe for signing physician.
--- NOTE | 2020-08-29 20:31 | CDI ---
Documentation Clarification Form Date: 08/30/2020 From: Josh Riggins Phone: If you have a question about this query, please contact Yusra Dickson Rewriter at [phone] between 8am and 5pm. Admit Date: 08/22/2020 01:03:00 AM Patient Name: Edison Jeronimo Visit Number: [id number] Discharge Date: 08/26/2020 01:54:00 PM ATTENTION: The Clinical Documentation Specialists (CDI) and [facility] Coding Staff appreciate your assistance in clarifying documentation. Please respond to the clarification below the line at the bottom and electronically sign. The CDI & [facility] Coding staff will review the response and follow-up if needed. Please note: Queries are made part of the Legal Health Record. If you have any questions, please contact the author of this message via ITS. Dr. Nasir Lerma MD., Anemia is documented in the 08/24 progress note by Cora Bergeron MD as "Anemia, hemoglobin 8.2". History/Risk Factors: IM nailing, femur fracure, GERD, HTN. Clinical indicators: Mr. Jeronimo is a 75-year-old male with a history of left intertrochanteric fracture.The patient presents to the operating room today for closed reduction and intramedullary nailing. Hemoglobin: 12.1L on admission after surgery 8.2L Hematocrit: 37.6L on admission after surgery 25.3L Treatment: Iron infusion 2 doses starting today In order to capture the severity of condition, please clarify the type of anemia and etiology if known:. Acute blood loss anemia Unable to determine Other, please specify Anemia from acute blood loss from fracture site with dilution with IV fluids prior to and during the operation, and subsequent further blood loss from fracture site postoperatively. MTDD
== END 2020-08-26 13:54 | DRG 481 ==
LOC: EC 23:01 → 5NMEDONC 08-22 01:03
PROVIDERS: ADMIT Orthopaedic Surgery Orthopaedic Surgery of the Spine; ATTEND Orthopaedic Surgery
PROC: 0QS736Z Reposition Left Upper Femur with Intramedullary Internal Fixation Device, Percutaneous Approach (ICD-10-PCS; principal; 2020-08-23 10:45)
DX: S72.142A Displaced intertrochanteric fracture of left femur, initial encounter for closed fracture (principal); D62 Acute posthemorrhagic anemia; I10 Essential (primary) hypertension; K21.9 Gastro-esophageal reflux disease without esophagitis; I48.0 Paroxysmal atrial fibrillation; I27.20 Pulmonary hypertension, unspecified; J44.9 Chronic obstructive pulmonary disease, unspecified; Z20.828 Contact with and (suspected) exposure to other viral communicable diseases; L40.9 Psoriasis, unspecified; F17.200 Nicotine dependence, unspecified, uncomplicated; Z95.2 Presence of prosthetic heart valve; Z95.0 Presence of cardiac pacemaker; Z98.890 Other specified postprocedural states; Z79.01 Long term (current) use of anticoagulants; R79.1 Abnormal coagulation profile; W01.0XXA Fall on same level from slipping, tripping and stumbling without subsequent striking against object, initial encounter; Y92.009 Unspecified place in unspecified non-institutional (private) residence as the place of occurrence of the external cause; Z86.79 Personal history of other diseases of the circulatory system
CPT/HCPCS: 36415; 70450; 71045; 72125; 73502; 80048; 80053; 81001; 82607; 83540; 83550; 85025; 85610; 85730; 86850; 86900; 86901; 87086; 87635; 93005; 93306; 94640; 96372; 96374; 96375; 99285